=== PATIENT | male | born 1960 | race Caucasian/White ===

== ENCOUNTER → 2018-09-20 14:39 | Outpatient (CLI) | payer OTHER, SELFPAY ==
[2018-09-20 15:09] LABS: Cholesterol 219 mg/dL (140-199); HDL Cholesterol 56 mg/dL (40-60); LDL Cholesterol Calculated 125 mg/dL (<100); Triglycerides 191 mg/dL (35-150)
[2018-09-20 15:26] LABS: Vitamin D 25 Hydroxy (D3) 40.9 ng/mL (30.0-100.0)
[2018-09-20 15:40] LABS: Prostate Specific Antigen Scrn 0.429 ng/mL (0.1-4.0)
== END ==
PROVIDERS: PCP Student in an Organized Health Care Education/Training Program; Visit Provider Student in an Organized Health Care Education/Training Program
DX: E55.9 Vitamin D deficiency, unspecified (principal); E78.5 Hyperlipidemia, unspecified; Z12.5 Encounter for screening for malignant neoplasm of prostate; Z71.1 Person with feared health complaint in whom no diagnosis is made
CPT/HCPCS: 36415; 80061; 82306; 86787; G0103

== ENCOUNTER → 2019-10-18 09:45 | Outpatient (CLI) | payer OTHER, SELFPAY ==
[2019-10-19 01:55] LABS: COVID19 Sendout Not Detected (Not Detect)
== END ==
PROVIDERS: PCP Student in an Organized Health Care Education/Training Program; Visit Provider Physician Assistant
DX: R51 Headache (principal)
CPT/HCPCS: 87635

== ENCOUNTER 2019-10-19 14:36 | Inpatient (IN) | payer OTHER, SELFPAY ==
[2019-10-19] VITALS (21 sets, daily range): BP systolic 85–139; BP diastolic 38–74; PULSE 73–103; RESP 14–24; TEMP 36.7–37.8; O2SAT 97–100; BMI 26.6
--- NOTE | 2019-10-19 14:46 | DI.RAD.S_ITS ---
PROCEDURE: XR CHEST 1V INDICATIONS: fever/short of breath TECHNIQUE: One view of the chest was acquired. COMPARISON: [facility], , CHEST 2 VIEW, 03/27/2012, 10:42. [facility], , XR CHEST 2V, 09/14/2017, 8:11. FINDINGS: Surgical changes and devices: Sternotomy wires and an aortic valve can be seen. Lungs and pleura: An incomplete inspiratory result is noted, causing a crowded appearance to the lung markings. No focal infiltrates are seen. No pneumothorax or significant pleural effusions are seen. Mediastinum: Mediastinal contours appear normal. Heart size is normal. Bones and chest wall: No suspicious bony lesions. Age-appropriate bony degenerative changes are seen. Overlying soft tissues appear unremarkable. IMPRESSION: Limited portable chest examination, without a significant cardiopulmonary abnormality identified. Postoperative and degenerative changes are seen. Dictated by: Al Winston M.D. on 10/19/2019 at 15:01 Approved by: Al Winston M.D. on 10/19/2019 at 15:01
[2019-10-19] MEDS: SODIUM CHLORIDE 0.9% 1,000 ML 1000 ML IV ×2 (15:11→18:00)
[2019-10-19] MEDS: ONDANSETRON 4 MG/2 ML INJ IV (15:11)
--- NOTE | 2019-10-19 15:12 | PC.NURSE ---
reports fever starting night, has been constipated tried miralax and stool softener. Dry heaves one time no vomiting. Rigors and chills. Reports abd bloating and distention. Tender to palpation across upper abd
[2019-10-19 15:14] LABS: Add Manual Diff / Slide Review NO; Basophils Absolute Auto 100 /uL (0-100); Basophils Percent Auto 0.6 % (0-2); Eosinophils Absolute Auto 0 /uL (0-450); Eosinophils Percent Auto 0.1 % (2-4); Hematocrit 36.4 % (41-53); Hemoglobin 12.7 g/dL (13.5-17.5); Lymphocytes Absolute Auto 500 /uL (1100-4500); Lymphocytes Percent Auto 4.7 % (25-40); Mean Corpuscular HGB Conc 34.8 % (30-36); Mean Corpuscular Hemoglobin 29.8 PG (26-34); Mean Corpuscular Volume 85.8 fL (80-100); Monocytes Absolute Auto 600 /uL (0-900); Monocytes Percent Auto 5.9 % (3-14); Neutrophils Absolute Auto 9500 /uL (1500-7000); Neutrophils Percent Auto 88.7 % (50-75); Platelet Count 147 X10^3/uL (150-400); Red Blood Cell Count 4.24 X10^6/uL (4.5-5.9); Red Cell Distribution Width 13.4 % (11.6-14.8); White Blood Cell Count 10.7 X10^3/uL (4.5-11.0)
--- NOTE | 2019-10-19 15:21 | DI.CT.S_ITS ---
PROCEDURE: CT ABDOMEN PELVIS W CON INDICATIONS: abdominal pain with fever and sepsis TECHNIQUE: After the administration of intravenous contrast, 5 mm thick sections acquired from the diaphragm to the symphysis. 5 mm coronal and sagittal reformats were acquired. For radiation dose reduction, the following was used: automated exposure control, adjustment of mA and/or kV according to patient size. COMPARISON: [facility], CR, XR CHEST 1V, 10/19/2019, 15:03. [facility], CT, ABDOMEN/PELVIS WITH CONTRAST, 09/14/2016, 13:01. FINDINGS: Image quality: Excellent. ABDOMEN: Lung bases: Lung bases are clear. Heart size is normal. Sternotomy wires are partially seen. A small hiatal hernia is incidentally noted. Solid organs: Liver is normal in size and enhancement. Diffuse fatty liver infiltration is noted. Gallbladder wall does not appear thickened. Biliary system is non dilated. Pancreas enhances normally. Spleen is normal in size and enhancement. No adrenal nodules. Kidneys demonstrate normal size and enhancement, without hydronephrosis. Peritoneum and bowel: Bowel loops demonstrate normal wall thickness and caliber. No free fluid or air. There is minimal sigmoid diverticulosis. Findings active diverticulitis are seen. Nodes and vessels: No retroperitoneal or mesenteric adenopathy by size criteria. Aorta and inferior vena cava are normal in size. Atherosclerotic calcification is noted. Miscellaneous: A mild periumbilical hernia is seen, containing fat. PELVIS: Genitourinary: Bladder wall thickness is normal. Miscellaneous: No enlarged inguinal or pelvic lymph nodes are seen. There is a fat-containing right inguinal hernia seen. Bones: No suspicious bony lesions. No vertebral body compression fractures. IMPRESSION: No imaging explanation is found for this patient's presenting symptoms. Incidental note is made of: Sternotomy Small hiatal hernia Fatty liver infiltration Fat-containing periumbilical hernia Minimal sigmoid diverticulosis, without diverticulitis Fat-containing right inguinal hernia Dictated by: Al Winston M.D. on 10/19/2019 at 15:11 Approved by: Al Winston M.D. on 10/19/2019 at 15:14
--- NOTE | 2019-10-19 15:24 | ED.FEVER ---
HPI - Fever General Chief Complaint: Fever Stated Complaint: fever up to 103, shaking, SOB Time Seen by Provider: 10/19/19 14:58 Source: patient Mode of arrival: Ambulatory History of Present Illness HPI Narrative: CC: Fever with shaking rigors HPI: The patient is a 58-year-old male who states that approximately 3 years ago he had a an aortic valve replaced with a bioprosthetic valve. He is on no anticoagulant other than aspirin. He presents today to the emergency department with shaking rigors and chills. He has no previous history of endocarditis. He complains that he has been having lower abdominal pain and tenderness. He states that he has had no arm dysuria or urinary frequency or urgency. He has been constipated and has not had a bowel movement. He states that he developed abdominal bloating on Sunday and a few days prior to that which he just kind of ignored. He has had no surgery on his belly including no appendectomy or cholecystectomy. He denies a history of pancreatitis as well as diverticulitis Crohn's disease or ulcerative colitis and irritable bowel syndrome. He has had no pyelonephritis kidney stones. He denies a history of diabetes mellitus hypertension stroke myocardial infarction. He has had fever for 3 days. He has had sweats with the shaking rigors. He has had tachypnea with shortness of breath associated with the rigors. He quit smoking cigarettes 22 years ago does not chew tobacco drinks alcohol 2 glasses of wine per night and does not smoke marijuana or marijuana products. Related Data Previous Rx's Medication Instructions Recorded aspirin 81 mg PO QDAY #30 tab 02/05/17 ezetimibe 10 mg tablet 10 mg PO DAILY #90 tab 09/24/19 Allergies Allergy/AdvReac Type Severity Reaction Status Date / Time sulfadiazine Allergy Severe Anaphylaxis Verified 10/19/19 17:15 oxycodone AdvReac Intermediate Nausea Verified 10/19/19 17:15 Review of Systems Review of Systems Narrative: REVIEW OF SYSTEMS: CONSTITUTIONAL: He has had fever for 3 days associated with shaking rigors and intermittent sweats. NEUROLOGICAL: He complains of a significant headache without nuchal rigidity. His had no numbness tingling paresthesias anesthesia is or paresis. He has had no focal weakness EENT: He denies any sore throat or trouble swallowing as well as any sinus congestion. CARDIO-PULMONARY: He has had tachypnea but no significant shortness of breath chest pain or cough. GASTROINTESTINAL: He has had ab abdominal pain in the right lower quadrant and upper quadrant with constipation, nausea but no vomiting or diarrhea. GENITAL URINARY: He has had no urinary frequency or urgency. MUSCULOSKELETAL/ RHEUMATOLOGICAL: Denies any significant back pain DERMATOLOGICAL: No skin rash hives or itching no bruising. Patient History Medical History Aortic stenosis (Chronic) Cardiac arrhythmia (Chronic) Depression (Chronic) Herpes (Chronic ~1996) Hyperlipidemia (Chronic) Sweet's syndrome (Chronic) Surgical History History of aortic valve replacement History of cardiac cath (Resolved ~2016) Family History Mother Cancer Grandfather Heart disease Grandmother Cancer Grandmother Cancer Social History household members: spouse Smoking Status: Former smoker Smoking Status: Former smoker Exam Narrative Exam Narrative: PHYSICAL EXAM: CONSTITUTIONAL: Awake, Alert, Oriented, Coherent, Cooperative in acute distress with shaking rigors. He appears pedal and sallow and may be icteric.. HEAD: AT/NC EENT: PERRL, FROM of eyes, no discharge, no nystagmus NOSE:No epistaxis or nasal drainage MOUTH:Oral mucosa is moist and pink, posterior pharynx is without erythema or exudate. NECK: Supple, no obvious JVD, Trachea is midline without stridor, no palpable LN. THORAX: No deformity, retractions, chest wall tenderness. LUNGS: Clear, symmetrical breath sounds without respiratory distress. The patient is obviously very tachypneic HEART: Tachycardic with a regular rhythm no appreciable murmur at this time ABDOMEN: Soft, tender in the right upper quadrant and right lower quadrant with mild guarding. No rebound. LYMPHATIC: no palpable lymph nodes or spleen. EXTREMITIES: No edema, deformity, tenderness or cyanosis. SKIN: No rash, bruising, petechiae or purpura. NEURO: Awake, alert, oriented, conversive, cranial nerves II-XII are symmetrical , moves all 4 extremities and is ambulatory. MENTAL HEALTH: Very anxious and uncomfortable. Initial Vital Signs Initial Vital Signs: Vital Signs Temperature 100.0 F H 10/19/19 14:44 Pulse Rate 103 H 10/19/19 14:44 Respiratory Rate 24 10/19/19 14:44 Blood Pressure 139/74 10/19/19 14:44 Pulse Oximetry 100 10/19/19 14:44 Course Course Course Narrative: 1627: The patient's VBG use revealed that his pH is 7.649, pCO2 of 17.8 bicarb is 19.6 total CO2 is 20 oxygen saturation 96%. Sodium is 130 potassium is 3.5 hematocrit 31% hemoglobin 10.5. The patient has a marked respiratory alkalosis. 1634: The CT scan of the patient's abdomen reveals no imaging explanation is found for the patient's presenting symptoms. Incidental note is made of a sternotomy small hiatal hernia fatty liver infiltration fat containing periumbilical hernia minimal sigmoid diverticulosis without diverticulitis fat containing right inguinal hernia. An ultrasound of the patient's right upper quadrant and gallbladder will be obtained. The patient chest x-ray revealed no acute cardiopulmonary pathology. The patient appears to have sepsis of unknown etiology. 1645: Discussed the patient with Dr. De La Cruz the hospitalist on-call. The patient's CT scan is negative as well as the chest x-ray. Because his liver function tests are abnormal we will obtain an ultrasound of the gallbladder to make sure there is no up cold cholecystitis or gallstones on ultrasound. This did not show up on CT scan. We are still waiting for the patient's urine. The other per remote possibility of sepsis of unknown etiology secondary questionably to endocarditis. The patient will be admitted to the hospital Dr. De La Cruz has agreed to accept the patient however we are waiting for the other 2 studies to be performed. He has not yet provided us with a urine sample. 1800: The patient has abnormal liver functions. Ultrasound of his gallbladder revealed no gallstones and was within normal limits. The patient appears to have sepsis of unknown etiology. The patient's urinalysis is negative for an infection. He may end up having sepsis of unknown etiology or an endocarditis since he has had in aortic valve replaced 3 years ago. The patient is being administered 1/3 L of fluid because his blood pressure is slowly declining however he is no longer tachycardic with a heart rate of 80. The patient is awake alert and oriented. He was administered Zosyn and vancomycin. He will be admitted to the intensive care unit. Orders Ordered: Discontinued Medications Acetaminophen (Tylenol) 975 mg PO NOW ONE Stop: 10/19/19 15:35 Last Admin: 10/19/19 15:39 Dose: 975 mg Documented by: MITCHELL Acetaminophen (Tylenol) 650 mg PO Q6HR PRN PRN Reason: Fever/Mild Pain (1-3) Last Admin: 10/22/19 09:08 Dose: 650 mg Documented by: JUAN J Admin: 10/20/19 02:39 Dose: 650 mg Documented by: ADAM Aspirin (Aspirin Ec) 81 mg PO DAILY [facility] Last Admin: 10/22/19 09:08 Dose: 81 mg Documented by: JUAN J Admin: 10/21/19 07:59 Dose: 81 mg Documented by: Admin: 10/20/19 08:39 Dose: 81 mg Documented by: MONICA Diphenhydramine HCl (Benadryl) 12.5 mg IV NOW ONE Stop: 10/19/19 15:19 Last Admin: 10/19/19 16:25 Dose: Not Given Documented by: MITCHELL Diphenhydramine HCl (Benadryl) 25 mg PO BEDTIME PRN PRN Reason: Insomnia Ezetimibe (Zetia) 10 mg PO DAILY [facility] Last Admin: 10/20/19 08:40 Dose: 10 mg Documented by: MONICA Enoxaparin Sodium (Lovenox) 40 mg SUBCUT DAILY [facility] Last Admin: 10/22/19 09:08 Dose: 40 mg Documented by: JUAN J Admin: 10/21/19 07:59 Dose: 40 mg Documented by: Admin: 10/20/19 08:39 Dose: 40 mg Documented by: MONICA Sodium Chloride (Normal Saline 0.9%) 1,000 mls @ 1,000 mls/hr IV BOLUS ONE Stop: 10/19/19 15:50 Last Infusion: 10/19/19 17:50 Dose: 0 mls/hr Documented by: Admin: 10/19/19 15:11 Dose: 1,000 mls/hr Documented by: MITCHELL Vancomycin HCl (Vancomycin) 1,000 mg in 200 mls @ 200 mls/hr IV NOW ONE Stop: 10/19/19 16:18 Last Infusion: 10/19/19 18:25 Dose: 0 mls/hr Documented by: Infusion: 10/19/19 18:18 Dose: 200 mls/hr Documented by: Admin: 10/19/19 17:20 Dose: 200 mls/hr Documented by: MITCHELL Piperacillin/Tazobactam/Dextrose (Zosyn) 4.5 gm in 100 mls @ 200 mls/hr IV NOW ONE Stop: 10/19/19 15:48 Last Infusion: 10/19/19 16:42 Dose: 0 mls/hr Documented by: Admin: 10/19/19 15:45 Dose: 200 mls/hr Documented by: MITCHELL Sodium Chloride (Normal Saline 0.9%) 1,000 mls @ 1,000 mls/hr IV BOLUS ONE Stop: 10/19/19 18:54 Last Infusion: 10/19/19 19:01 Dose: 0 mls/hr Documented by: Admin: 10/19/19 18:00 Dose: 1,000 mls/hr Documented by: MITCHELL Sodium Chloride (Normal Saline 0.9%) 1,000 mls @ 100 mls/hr IV CONT LOY Last Admin: 10/21/19 02:56 Dose: 100 mls/hr Documented by: Infusion: 10/20/19 18:40 Dose: 100 mls/hr Documented by: Admin: 10/20/19 08:40 Dose: 100 mls/hr Documented by: Infusion: 10/20/19 05:51 Dose: 100 mls/hr Documented by: Admin: 10/19/19 19:51 Dose: 100 mls/hr Documented by: IDALMIS Piperacillin/Tazobactam/Dextrose (Zosyn) 3.375 gm in 50 mls @ 100 mls/hr IV Q6H LOY Last Infusion: 10/22/19 14:00 Dose: 0 mls/hr Documented by: JUAN J Admin: 10/22/19 12:42 Dose: 100 mls/hr Documented by: Infusion: 10/22/19 07:39 Dose: 0 mls/hr Documented by: Admin: 10/22/19 06:30 Dose: 100 mls/hr Documented by: Infusion: 10/22/19 00:15 Dose: 0 mls/hr Documented by: Admin: 10/21/19 23:45 Dose: 100 mls/hr Documented by: Infusion: 10/21/19 18:20 Dose: 0 mls/hr Documented by: Admin: 10/21/19 17:50 Dose: 100 mls/hr Documented by: Infusion: 10/21/19 14:58 Dose: 0 mls/hr Documented by: Admin: 10/21/19 12:48 Dose: 100 mls/hr Documented by: Infusion: 10/21/19 07:08 Dose: 0 mls/hr Documented by: Admin: 10/21/19 05:57 Dose: 100 mls/hr Documented by: Infusion: 10/21/19 01:30 Dose: 0 mls/hr Documented by: Admin: 10/21/19 00:22 Dose: 100 mls/hr Documented by: Infusion: 10/20/19 20:17 Dose: 0 mls/hr Documented by: Admin: 10/20/19 19:47 Dose: 100 mls/hr Documented by: Infusion: 10/20/19 14:06 Dose: 100 mls/hr Documented by: Admin: 10/20/19 13:36 Dose: 100 mls/hr Documented by: Infusion: 10/20/19 07:33 Dose: 0 mls/hr Documented by: Admin: 10/20/19 06:04 Dose: 100 mls/hr Documented by: Infusion: 10/20/19 01:15 Dose: 0 mls/hr Documented by: Admin: 10/20/19 00:45 Dose: 100 mls/hr Documented by: ADAM Vancomycin HCl (Vancomycin) 1,000 mg in 200 mls @ 100 mls/hr IV Q8H [facility] Last Admin: 10/19/19 21:29 Dose: Not Given Documented by: PHAM Vancomycin HCl (Vancomycin) 1,000 mg in 200 mls @ 100 mls/hr IV Q8H [facility] Last Infusion: 10/22/19 12:37 Dose: 0 mls/hr Documented by: Admin: 10/22/19 10:25 Dose: 100 mls/hr Documented by: Infusion: 10/22/19 07:39 Dose: 0 mls/hr Documented by: Admin: 10/22/19 01:40 Dose: 100 mls/hr Documented by: Infusion: 10/21/19 21:09 Dose: 0 mls/hr Documented by: Admin: 10/21/19 18:51 Dose: 100 mls/hr Documented by: Infusion: 10/21/19 12:49 Dose: 0 mls/hr Documented by: Admin: 10/21/19 10:27 Dose: 100 mls/hr Documented by: Infusion: 10/21/19 05:57 Dose: 0 mls/hr Documented by: Admin: 10/21/19 02:56 Dose: 100 mls/hr Documented by: Infusion: 10/20/19 22:40 Dose: 0 mls/hr Documented by: [email or web address] Admin: 10/20/19 19:47 Dose: 100 mls/hr Documented by: Infusion: 10/20/19 13:21 Dose: 0 mls/hr Documented by: Admin: 10/20/19 11:18 Dose: 100 mls/hr Documented by: Infusion: 10/20/19 07:33 Dose: 0 mls/hr Documented by: Admin: 10/20/19 02:31 Dose: 100 mls/hr Documented by: ADAM Lorazepam (Ativan) 1 mg IV NOW ONE Stop: 10/19/19 16:31 Last Admin: 10/19/19 17:25 Dose: 1 mg Documented by: CY Magnesium Hydroxide (Milk Of Magnesia) 30 ml PO DAILY PRN PRN Reason: Constipation Metoclopramide HCl (Reglan) 10 mg IV NOW ONE Stop: 10/19/19 15:19 Last Admin: 10/19/19 16:25 Dose: Not Given Documented by: MITCHELL Morphine Sulfate (Morphine) 4 mg IV NOW ONE Stop: 10/19/19 15:22 Last Admin: 10/19/19 15:41 Dose: 4 mg Documented by: MITCHELL Morphine Sulfate (Morphine) 2 mg IV NOW ONE Stop: 10/21/19 07:50 Last Admin: 10/21/19 07:58 Dose: 2 mg Documented by: MONICA Morphine Sulfate (Morphine) 2 mg IV Q4HR PRN PRN Reason: Pain, Moderate (4-6) Naloxone HCl (Narcan) 0.2 mg IV Q2MIN PRN PRN Reason: Opiate Reversal Nitroglycerin (Nitrostat) 0.3 mg SL [id number] [id number] Last Admin: 10/21/19 07:34 Dose: 0.3 mg Documented by: MONICA Ondansetron HCl (Zofran) 4 mg IV NOW ONE Stop: 10/19/19 15:04 Last Admin: 10/19/19 15:11 Dose: 4 mg Documented by: MITCHELL Ondansetron HCl (Zofran) 4 mg IV Q8HR PRN PRN Reason: Nausea And Vomiting Potassium Chloride (Klor-Con M20) 40 meq PO NOW ONE Stop: 10/22/19 13:46 Last Admin: 10/22/19 13:59 Dose: 40 meq Documented by: JUAN J Vancomycin HCl (Vancomycin Trough) 1 request [facility] 1800 ONE Stop: 10/20/19 18:01 Last Admin: 10/20/19 19:46 Dose: 1 request Documented by: BETO Vancomycin HCl (Vancomycin Trough) 1 request [facility] 1800 ONE Stop: 10/22/19 18:01 Vital Signs Vital signs: Vital Signs - 8 hr 10/19/19 14:44 10/19/19 15:10 10/19/19 15:30 Temperature 100.0 F H Pulse Rate 103 H 100 H 98 H Respiratory Rate 24 24 16 Blood Pressure 139/74 Blood Pressure [Left Arm] 121/38 L 121/61 Pulse Oximetry 100 99 97 10/19/19 16:00 10/19/19 16:15 10/19/19 16:30 Temperature Pulse Rate 91 H 92 H 90 Respiratory Rate 18 16 17 Blood Pressure Blood Pressure [Left Arm] 105/59 L 95/52 L 91/53 L Pulse Oximetry 97 98 99 10/19/19 16:45 10/19/19 17:00 10/19/19 17:15 Temperature Pulse Rate 88 86 80 Respiratory Rate 16 14 16 Blood Pressure Blood Pressure [Left Arm] 99/58 L 93/50 L 93/50 L Pulse Oximetry 97 98 MDM - Fever Lab Data Result diagrams: 10/22/19 06:09 10/22/19 06:09 Labs: Lab Results 10/19/19 10/19/19 10/19/19 Range/Units 15:00 15:00 15:00 WBC 10.7 (4.5-11.0) X10^3/uL RBC 4.24 L (4.5-5.9) X10^6/uL Hgb 12.7 L (13.5-17.5) g/dL Hct 36.4 L (41-53) % MCV 85.8 (80-100) fL MCH 29.8 (26-34) PG MCHC 34.8 (30-36) % RDW 13.4 (11.6-14.8) % Plt Count 147 L (150-400) X10^3/uL Neut % (Auto) 88.7 H (50-75) % Lymph % (Auto) 4.7 L (25-40) % [place] % (Auto) 5.9 (3-14) % Eos % (Auto) 0.1 L (2-4) % Baso % (Auto) 0.6 (0-2) % Neut # (Auto) 9500 H (8296-9134) /uL Lymph # (Auto) 500 L (3690-8320) /uL [place] # (Auto) 600 (0-900) /uL Eos # (Auto) 0 (0-450) /uL Baso # (Auto) 100 (0-100) /uL ESR (0-15) MM/HR VBG pH (7.33-7.43) VBG pCO2 (45-50) mmHg VBG pO2 (35-45) mmHg VBG HCO3 (23-28) mmol/L VBG Total CO2 (24-29) mmol/L VBG O2 Saturation (70-75) % VBG Base Excess (0-4) mmol/L Sodium 133 L (137-145) mmol/L Potassium 3.8 (3.4-5.1) mmol/L Chloride 98 (98-107) mmol/L Carbon Dioxide 25 (22-32) mmol/L BUN 14 (9-20) mg/dL Creatinine 0.91 (0.66-1.25) mg/dL Estimated GFR > 60.0 (>60) mL/min BUN/Creatinine Ratio 15.4 (6-22) Glucose 98 (80-110) mg/dL Lactate (0.7-2.1) mmol/L Calcium 8.9 (8.4-10.2) mg/dL Ferritin (18-464) ng/mL Total Bilirubin 0.8 (0.2-1.3) mg/dL AST 115 H (17-59) IU/L ALT 125 H (<50) IU/L Alkaline Phosphatase 78 (38-126) U/L C-Reactive Protein (<1.0) mg/dL Total Protein 7.1 (6.3-8.2) g/dL Albumin 4.3 (3.5-5.0) g/dL Globulin 2.8 (1.7-4.1) g/dL Albumin/Globulin Ratio 1.5 (1.0-2.8) Procalcitonin 1.09 H (<0.5) ng/mL Urine Color Urine Appearance Urine pH (4.5-8.0) Ur Specific Preston (1.000-1.035) Urine Protein (Negative) Urine Glucose (UA) (Negative) g/dL Urine Ketones (NEGATIVE) Urine Occult Blood (Negative) Urine Nitrate (Negative) Urine Bilirubin (NEGATIVE) Urine Urobilinogen (0.2) E.U./dL Ur Leukocyte Esterase (NEGATIVE) Urine RBC (0-5/HPF) Urine WBC (0-5/HPF) Urine Bacteria (None) Ur Culture Indicated? A. baumannii (PCR) (Not Detect) Yola albicans (PCR) (Not Detect) C. glabrata (PCR) (Not Detect) C. krusei (PCR) (Not Detect) C. parapsilosis (PCR) (Not Detect) C. tropicalis (PCR) (Not Detect) COVID-19 PCR (Negative) Enterobacteriac sp PCR (Not Detect) E. cloacae complex PCR (Not Detect) Enterococcus sp PCR (Not Detect) E. coli (PCR) (Not Detect) H. influenzae (PCR) (Not Detect) Klebsiella oxytoca PCR (Not Detect) Klebsiella pneumoniae (Not Detect) List. monocytogenes PCR (Not Detect) N. meningitidis (PCR) (Not Detect) Proteus species (PCR) (Not Detect) Serratia marcescens PCR (Not Detect) Staphylococcus sp PCR (Not Detect) Staph aureus (PCR) (Not Detect) mecA-Methicil Res Gene Streptococcus sp PCR (Not Detect) Group A Strep (PCR) (Not Detect) Strep agalactiae (PCR) (Not Detect) Strep pneumoniae (PCR) (Not Detect) P. aeruginosa (PCR) (Not Detect) Mariajose/B-Vanco Res Genes (Not Detect) KPC-Carbap Res Gene PCR 10/19/19 10/19/19 10/19/19 Range/Units 15:00 15:00 15:00 WBC (4.5-11.0) X10^3/uL RBC (4.5-5.9) X10^6/uL Hgb (13.5-17.5) g/dL Hct (41-53) % MCV (80-100) fL MCH (26-34) PG MCHC (30-36) % RDW (11.6-14.8) % Plt Count (150-400) X10^3/uL Neut % (Auto) (50-75) % Lymph % (Auto) (25-40) % [place] % (Auto) (3-14) % Eos % (Auto) (2-4) % Baso % (Auto) (0-2) % Neut # (Auto) (5096-2953) /uL Lymph # (Auto) (5068-2550) /uL [place] # (Auto) (0-900) /uL Eos # (Auto) (0-450) /uL Baso # (Auto) (0-100) /uL ESR 34 H (0-15) MM/HR VBG pH (7.33-7.43) VBG pCO2 (45-50) mmHg VBG pO2 (35-45) mmHg VBG HCO3 (23-28) mmol/L VBG Total CO2 (24-29) mmol/L VBG O2 Saturation (70-75) % VBG Base Excess (0-4) mmol/L Sodium (137-145) mmol/L Potassium (3.4-5.1) mmol/L Chloride (98-107) mmol/L Carbon Dioxide (22-32) mmol/L BUN (9-20) mg/dL Creatinine (0.66-1.25) mg/dL Estimated GFR (>60) mL/min BUN/Creatinine Ratio (6-22) Glucose (80-110) mg/dL Lactate 3.1 H (0.7-2.1) mmol/L Calcium (8.4-10.2) mg/dL Ferritin (18-464) ng/mL Total Bilirubin (0.2-1.3) mg/dL AST (17-59) IU/L ALT (<50) IU/L Alkaline Phosphatase (38-126) U/L C-Reactive Protein 8.4 H (<1.0) mg/dL Total Protein (6.3-8.2) g/dL Albumin (3.5-5.0) g/dL Globulin (1.7-4.1) g/dL Albumin/Globulin Ratio (1.0-2.8) Procalcitonin (<0.5) ng/mL Urine Color Urine Appearance Urine pH (4.5-8.0) Ur Specific Preston (1.000-1.035) Urine Protein (Negative) Urine Glucose (UA) (Negative) g/dL Urine Ketones (NEGATIVE) Urine Occult Blood (Negative) Urine Nitrate (Negative) Urine Bilirubin (NEGATIVE) Urine Urobilinogen (0.2) E.U./dL Ur Leukocyte Esterase (NEGATIVE) Urine RBC (0-5/HPF) Urine WBC (0-5/HPF) Urine Bacteria (None) Ur Culture Indicated? A. baumannii (PCR) (Not Detect) Yola albicans (PCR) (Not Detect) C. glabrata (PCR) (Not Detect) C. krusei (PCR) (Not Detect) C. parapsilosis (PCR) (Not Detect) C. tropicalis (PCR) (Not Detect) COVID-19 PCR (Negative) Enterobacteriac sp PCR (Not Detect) E. cloacae complex PCR (Not Detect) Enterococcus sp PCR (Not Detect) E. coli (PCR) (Not Detect) H. influenzae (PCR) (Not Detect) Klebsiella oxytoca PCR (Not Detect) Klebsiella pneumoniae (Not Detect) List. monocytogenes PCR (Not Detect) N. meningitidis (PCR) (Not Detect) Proteus species (PCR) (Not Detect) Serratia marcescens PCR (Not Detect) Staphylococcus sp PCR (Not Detect) Staph aureus (PCR) (Not Detect) mecA-Methicil Res Gene Streptococcus sp PCR (Not Detect) Group A Strep (PCR) (Not Detect) Strep agalactiae (PCR) (Not Detect) Strep pneumoniae (PCR) (Not Detect) P. aeruginosa (PCR) (Not Detect) Mariajose/B-Vanco Res Genes (Not Detect) KPC-Carbap Res Gene PCR 10/19/19 10/19/19 10/19/19 Range/Units 15:00 15:00 16:05 WBC (4.5-11.0) X10^3/uL RBC (4.5-5.9) X10^6/uL Hgb (13.5-17.5) g/dL Hct (41-53) % MCV (80-100) fL MCH (26-34) PG MCHC (30-36) % RDW (11.6-14.8) % Plt Count (150-400) X10^3/uL Neut % (Auto) (50-75) % Lymph % (Auto) (25-40) % [place] % (Auto) (3-14) % Eos % (Auto) (2-4) % Baso % (Auto) (0-2) % Neut # (Auto) (5225-7949) /uL Lymph # (Auto) (1273-4417) /uL [place] # (Auto) (0-900) /uL Eos # (Auto) (0-450) /uL Baso # (Auto) (0-100) /uL ESR (0-15) MM/HR VBG pH 7.65 H (7.33-7.43) VBG pCO2 17.8 L (45-50) mmHg VBG pO2 62 H (35-45) mmHg VBG HCO3 20 L (23-28) mmol/L VBG Total CO2 20 L (24-29) mmol/L VBG O2 Saturation 96 H (70-75) % VBG Base Excess -1.0 L (0-4) mmol/L Sodium (137-145) mmol/L Potassium (3.4-5.1) mmol/L Chloride (98-107) mmol/L Carbon Dioxide (22-32) mmol/L BUN (9-20) mg/dL Creatinine (0.66-1.25) mg/dL Estimated GFR (>60) mL/min BUN/Creatinine Ratio (6-22) Glucose (80-110) mg/dL Lactate (0.7-2.1) mmol/L Calcium (8.4-10.2) mg/dL Ferritin 337 (18-464) ng/mL Total Bilirubin (0.2-1.3) mg/dL AST (17-59) IU/L ALT (<50) IU/L Alkaline Phosphatase (38-126) U/L C-Reactive Protein (<1.0) mg/dL Total Protein (6.3-8.2) g/dL Albumin (3.5-5.0) g/dL Globulin (1.7-4.1) g/dL Albumin/Globulin Ratio (1.0-2.8) Procalcitonin (<0.5) ng/mL Urine Color Urine Appearance Urine pH (4.5-8.0) Ur Specific Preston (1.000-1.035) Urine Protein (Negative) Urine Glucose (UA) (Negative) g/dL Urine Ketones (NEGATIVE) Urine Occult Blood (Negative) Urine Nitrate (Negative) Urine Bilirubin (NEGATIVE) Urine Urobilinogen (0.2) E.U./dL Ur Leukocyte Esterase (NEGATIVE) Urine RBC (0-5/HPF) Urine WBC (0-5/HPF) Urine Bacteria (None) Ur Culture Indicated? A. baumannii (PCR) Not detected (Not Detect) Yola albicans (PCR) Not detected (Not Detect) C. glabrata (PCR) Not detected (Not Detect) C. krusei (PCR) Not detected (Not Detect) C. parapsilosis (PCR) Not detected (Not Detect) C. tropicalis (PCR) Not detected (Not Detect) COVID-19 PCR (Negative) Enterobacteriac sp PCR Not detected (Not Detect) E. cloacae complex PCR Not detected (Not Detect) Enterococcus sp PCR Detected H (Not Detect) E. coli (PCR) Not detected (Not Detect) H. influenzae (PCR) Not detected (Not Detect) Klebsiella oxytoca PCR Not detected (Not Detect) Klebsiella pneumoniae Not detected (Not Detect) List. monocytogenes PCR Not detected (Not Detect) N. meningitidis (PCR) Not detected (Not Detect) Proteus species (PCR) Not detected (Not Detect) Serratia marcescens PCR Not detected (Not Detect) Staphylococcus sp PCR Not detected (Not Detect) Staph aureus (PCR) Not detected (Not Detect) mecA-Methicil Res Gene Not Reportable Streptococcus sp PCR Not detected (Not Detect) Group A Strep (PCR) Not detected (Not Detect) Strep agalactiae (PCR) Not detected (Not Detect) Strep pneumoniae (PCR) Not detected (Not Detect) P. aeruginosa (PCR) Not detected (Not Detect) Mariajose/B-Vanco Res Genes Not detected (Not Detect) KPC-Carbap Res Gene PCR Not Reportable 10/19/19 10/19/19 Range/Units 16:36 17:18 WBC (4.5-11.0) X10^3/uL RBC (4.5-5.9) X10^6/uL Hgb (13.5-17.5) g/dL Hct (41-53) % MCV (80-100) fL MCH (26-34) PG MCHC (30-36) % RDW (11.6-14.8) % Plt Count (150-400) X10^3/uL Neut % (Auto) (50-75) % Lymph % (Auto) (25-40) % [place] % (Auto) (3-14) % Eos % (Auto) (2-4) % Baso % (Auto) (0-2) % Neut # (Auto) (5650-8589) /uL Lymph # (Auto) (0767-7417) /uL [place] # (Auto) (0-900) /uL Eos # (Auto) (0-450) /uL Baso # (Auto) (0-100) /uL ESR (0-15) MM/HR VBG pH (7.33-7.43) VBG pCO2 (45-50) mmHg VBG pO2 (35-45) mmHg VBG HCO3 (23-28) mmol/L VBG Total CO2 (24-29) mmol/L VBG O2 Saturation (70-75) % VBG Base Excess (0-4) mmol/L Sodium (137-145) mmol/L Potassium (3.4-5.1) mmol/L Chloride (98-107) mmol/L Carbon Dioxide (22-32) mmol/L BUN (9-20) mg/dL Creatinine (0.66-1.25) mg/dL Estimated GFR (>60) mL/min BUN/Creatinine Ratio (6-22) Glucose (80-110) mg/dL Lactate (0.7-2.1) mmol/L Calcium (8.4-10.2) mg/dL Ferritin (18-464) ng/mL Total Bilirubin (0.2-1.3) mg/dL AST (17-59) IU/L ALT (<50) IU/L Alkaline Phosphatase (38-126) U/L C-Reactive Protein (<1.0) mg/dL Total Protein (6.3-8.2) g/dL Albumin (3.5-5.0) g/dL Globulin (1.7-4.1) g/dL Albumin/Globulin Ratio (1.0-2.8) Procalcitonin (<0.5) ng/mL Urine Color Yellow Urine Appearance Clear Urine pH 8.5 H (4.5-8.0) Ur Specific [place] <=1.005 (1.000-1.035) Urine Protein Trace H (Negative) Urine Glucose (UA) Negative (Negative) g/dL Urine Ketones 2+ H (NEGATIVE) Urine Occult Blood Negative (Negative) Urine Nitrate Negative (Negative) Urine Bilirubin Negative (NEGATIVE) Urine Urobilinogen 0.2 (0.2) E.U./dL Ur Leukocyte Esterase Negative (NEGATIVE) Urine RBC 0-1/hpf (0-5/HPF) Urine WBC 0-1/hpf (0-5/HPF) Urine Bacteria None seen (None) Ur Culture Indicated? Cult not indicated A. baumannii (PCR) (Not Detect) Yola albicans (PCR) (Not Detect) C. glabrata (PCR) (Not Detect) C. krusei (PCR) (Not Detect) C. parapsilosis (PCR) (Not Detect) C. tropicalis (PCR) (Not Detect) COVID-19 PCR Negative (Negative) Enterobacteriac sp PCR (Not Detect) E. cloacae complex PCR (Not Detect) Enterococcus sp PCR (Not Detect) E. coli (PCR) (Not Detect) H. influenzae (PCR) (Not Detect) Klebsiella oxytoca PCR (Not Detect) Klebsiella pneumoniae (Not Detect) List. monocytogenes PCR (Not Detect) N. meningitidis (PCR) (Not Detect) Proteus species (PCR) (Not Detect) Serratia marcescens PCR (Not Detect) Staphylococcus sp PCR (Not Detect) Staph aureus (PCR) (Not Detect) mecA-Methicil Res Gene Streptococcus sp PCR (Not Detect) Group A Strep (PCR) (Not Detect) Strep agalactiae (PCR) (Not Detect) Strep pneumoniae (PCR) (Not Detect) P. aeruginosa (PCR) (Not Detect) Mariajose/B-Vanco Res Genes (Not Detect) KPC-Carbap Res Gene PCR ABG Data Attestation: I personally reviewed and interpreted this ABG as follows: ECG Data Attestation: I personally reviewed and interpreted this ECG as follows: Interpretation: The patient's ventricular rate is 102 and has a sinus tachycardia. MI interval is normal QRS is normal in duration QTC is 417 milliseconds axis is normal. There are no other acute diagnostic ST segment changes. The patient has T-wave inversions in V1 but no other acute changes to suggest ischemia or infarct. Discharge Plan Departure Patient Disposition: Admitted As Inpatient Clinical Impression: Acute respiratory alkalosis, Acidosis, lactic Fever Qualifiers: Fever type: unspecified Qualified Code(s): R50.9 - Fever, unspecified Sepsis Qualifiers: Sepsis type: sepsis due to unspecified organism Sepsis acute organ dysfunction status: unspecified Qualified Code(s): A41.9 - Sepsis, unspecified organism Discharge Date/Time: 10/19/19 18:36 Referrals: Sander Gatica MD [Primary Care Provider] - Admit Date/Time: 10/19/19 17:46 Admit Provider: Cesar De La Cruz
[2019-10-19 15:27] LABS: Alanine Aminotransferase 125 IU/L (<50); Albumin 4.3 g/dL (3.5-5.0); Albumin Globulin Ratio 1.5 (1.0-2.8); Alkaline Phosphatase 78 U/L (38-126); Aspartate Aminotransferase 115 IU/L (17-59); BUN Creatinine Ratio 15.4 (6-22); Bilirubin Total 0.8 mg/dL (0.2-1.3); Blood Urea Nitrogen 14 mg/dL (9-20); Calcium 8.9 mg/dL (8.4-10.2); Carbon Dioxide 25 mmol/L (22-32); Chloride 98 mmol/L (98-107); Estimated Glomerular Filt Rate > 60.0 mL/min (>60); Globulin 2.8 g/dL (1.7-4.1); Glucose 98 mg/dL (80-110); HEMOLYSIS 16 (0-50); Potassium 3.8 mmol/L (3.4-5.1); Sodium 133 mmol/L (137-145); Total Protein 7.1 g/dL (6.3-8.2)
[2019-10-19 15:28] LABS: Lactate (Lactic Acid) 3.1 mmol/L (0.7-2.1)
[2019-10-19] MEDS: ACETAMINOPHEN 325 MG TABLET 975 MG PO (15:39)
[2019-10-19 15:41] LABS: C-Reactive Protein Quant 8.4 mg/dL (<1.0)
[2019-10-19] MEDS: MORPHINE 4 MG/ML INJ IV (15:41)
[2019-10-19] MEDS: PIPERACILLIN-TAZO 4.5 GM/100 ML FROZ.PIGGY IV (15:45)
[2019-10-19 16:01] LABS: Procalcitonin 1.09 ng/mL (<0.5)
[2019-10-19 16:04] LABS: Erythrocyte Sedimentation Rate 34 MM/HR (0-15)
--- NOTE | 2019-10-19 16:35 | DI.US.S_ITS ---
PROCEDURE: US ABDOMEN LIMITED INDICATIONS: TENDER RUQ, SEPSIS, ?GALLSTONES TECHNIQUE: Real-time focused scanning was performed of the abdomen, with image documentation. COMPARISON: [facility], CR, XR CHEST 1V, 10/19/2019, 15:03. [facility], CT, CT ABDOMEN PELVIS W CON, 10/19/2019, 15:46. FINDINGS: The liver demonstrates normal size. The liver demonstrates generalized increased echogenicity. This decreases ultrasound sensitivity for detection of hepatic masses. No findings of gallstones or sludge are seen. The gallbladder wall is not thickened, measuring 3 mm or less. No specific pericholecystic fluid is seen. The sonographic Shaikh sign is negative. The common bile duct is dilated measuring 10 mm. The pancreas is not well-seen. IMPRESSION: Dilated common bile duct measuring up to 10 mm. No cause of obstruction can be seen. If clinically appropriate, an MRCP could be considered for further evaluation (assuming that there is no contraindication to MRI). Normal appearing gallbladder ultrasound. Note: Concordant preliminary findings given by the social professionals upon the completion of the examination to Dr. Anand at 5:45 PM on October 19, 2019. Dictated by: Al Winston M.D. on 10/19/2019 at 16:57 Approved by: Al Winston M.D. on 10/19/2019 at 16:59
[2019-10-19 16:36] LABS: HCO3 VBG 20 mmol/L (23-28); PCO2 VBG 17.8 mmHg (45-50); PO2 VBG 62 mmHg (35-45); Total CO2 VBG 20 mmol/L (24-29); pH VBG 7.65 (7.33-7.43)
[2019-10-19 16:37] LABS: Oxygen Saturation VBG 96 % (70-75)
[2019-10-19 16:39] LABS: Ferritin 337 ng/mL (18-464)
[2019-10-19 17:10] LABS: Reflexed Lactate in 2 Hours Y
[2019-10-19] MEDS: VANCOMYCIN 1,000 MG/200 ML PIGGYBACK 200 MG IV (17:20)
[2019-10-19 17:22] LABS: Bacteria Urine None Seen
[2019-10-19] MEDS: LORazepam 2 MG/ML INJ 1 MG IV (17:25)
[2019-10-19 17:26] LABS: Appearance Urine UA CLEAR; Bilirubin Urine UA NEGATIVE (NEGATIVE); Color Urine UA YELLOW; Glucose Urine UA NEGATIVE (Negative); Ketones Urine UA 2+ (NEGATIVE); Leukocyte Esterase Urine UA NEGATIVE (NEGATIVE); Nitrite Urine UA NEGATIVE (Negative); Occult Blood Urine UA NEGATIVE (Negative); Protein Urine UA TRACE (Negative); Specific Gravity Urine UA <=1.005 (1.000-1.035); Urobilinogen Urine UA 0.2 E.U./dL (0.2); pH Urine UA 8.5 (4.5-8.0)
[2019-10-19 17:31] LABS: COVID19 -Nasal RAPID Negative (Negative)
[2019-10-19 17:33] LABS: Culture Indicated Urine Cult Not Indicated; RBC Urine 0-1/HPF (0-5/HPF); WBC Urine 0-1/HPF (0-5/HPF)
--- NOTE | 2019-10-19 18:01 | P.HP_ITS ---
History of Present Illness History of Present Illness Date Patient Seen: 10/19/19 Time Patient Seen: 17:00 Chief complaint: fever up to 103, shaking, SOB Narrative: Patient is 58-year-old male with history tissue heart valve for aortic stenosis who presents to the emergency department with almost 2 day history of fever and rigors. He developed acute onset of rigors and high fevers around midnight Sunday. He states he has been shaking almost nonstop to point of fatigue and unable to fall asleep. His temperature has been as high as 103.8 at home. He has also noticed significant discomfort across his lower abdomen. He has felt a little bloated which she attributed to homemade chili a couple of days ago but had last bowel movement today. He denies any dyspnea, cough, nausea, vomiting, flank pain, urinary urgency or discomfort. He has some headache which he attributes to not sleeping and fevers. Initial vitals in the ED he was normotensive with blood pressure in the 120s over 70s. However his blood pressure has been trending down into the 80s/50s in spite of 2 L fluid resuscitation. He is mildly tachycardic with rate anywhere from 80 to around 100, temp 100.1?, respirations 16-24, O2 sat 98% room air. Chest x-ray without acute findings. He had abdomen and pelvic CT which showed fatty liver, fat containing umbilical hernia, right inguinal hernia without acute findings. Abdominal ultrasound indicated dilated CBD measuring up to 10 mm without gallstones or other obvious cause of obstruction and with normal appearing gallbladder. Labs: WBC 10.7, 88.7% neutrophils, hemoglobin 12.7, BUN 14, creatinine 0.9, lactate 3.1, AST 115, ALT 125, bili 0.8, and procalcitonin 1.09. Blood cultures were sent. Urine was obtained after IV antibiotics but microscopic does not indicate infection. He was started on Zosyn and vancomycin in the ED. Patient History Medical History Aortic stenosis (Chronic) Cardiac arrhythmia (Chronic) Depression (Chronic) Herpes (Chronic ~1996) Hyperlipidemia (Chronic) Sweet's syndrome (Chronic) Surgical History History of aortic valve replacement History of cardiac cath (Resolved ~2016) Family & Social History Family History Mother Cancer Grandfather Heart disease Grandmother Cancer Grandmother Cancer Tobacco & Substance use: Smoking Status Former smoker Meds Home Medications and Allergies Home Medications Medication Instructions Recorded Confirmed Type aspirin 81 mg PO QDAY #30 tab 02/05/17 08/22/18 Rx ezetimibe 10 mg tablet 10 mg PO DAILY #90 tab 09/24/19 Rx Allergies Allergy/AdvReac Type Severity Reaction Status Date / Time sulfadiazine Allergy Severe Anaphylaxis Verified 10/19/19 17:15 oxycodone AdvReac Intermediate Nausea Verified 10/19/19 17:15 Review of Systems Review of Systems ROS: Yes All systems reviewed with the patient and are negative except as oth erwise documented Exam Vital Signs (past 8 hours): - 10/19/19 14:44 10/19/19 15:10 10/19/19 15:30 Temperature 100.0 F H Pulse Rate 103 H 100 H 98 H Respiratory Rate 24 24 16 Blood Pressure 139/74 Blood Pressure [Left Arm] 121/38 L 121/61 Pulse Oximetry 100 99 97 10/19/19 16:00 10/19/19 16:15 10/19/19 16:30 Temperature Pulse Rate 91 H 92 H 90 Respiratory Rate 18 16 17 Blood Pressure Blood Pressure [Left Arm] 105/59 L 95/52 L 91/53 L Pulse Oximetry 97 98 99 10/19/19 16:45 10/19/19 17:00 10/19/19 17:15 Temperature Pulse Rate 88 86 80 Respiratory Rate 16 14 16 Blood Pressure Blood Pressure [Left Arm] 99/58 L 93/50 L 93/50 L Pulse Oximetry 97 98 Oxygen Delivery Method Room Air Narrative Exam Narrative: General: Well-developed well-nourished but ill-appearing male HEENT: Pupils equal and reactive, oropharynx unremarkable Neck: Supple without lymphadenopathy Lungs: Clear to auscultation Heart: Normal S1 and S2, regular rhythm, there is aortic systolic murmur Abdomen: Nondistended, soft, there is mild tenderness across lower abdomen which is not reproducible, no HSM, no abdominal mass Extremities: Warm, dry, no edema Neurological: Sensorium intact, no focal weakness Skin: No rash or petechiae Objective Labs Result Diagrams: 10/19/19 15:00 06/14/20 15:00 Labs: Laboratory Results - last 24 hr 10/19/19 10/19/19 10/19/19 15:00 15:00 15:00 WBC 10.7 RBC 4.24 L Hgb 12.7 L Hct 36.4 L MCV 85.8 MCH 29.8 MCHC 34.8 RDW 13.4 Plt Count 147 L Neut % (Auto) 88.7 H Lymph % (Auto) 4.7 L [place] % (Auto) 5.9 Eos % (Auto) 0.1 L Baso % (Auto) 0.6 Neut # (Auto) 9500 H Lymph # (Auto) 500 L [place] # (Auto) 600 Eos # (Auto) 0 Baso # (Auto) 100 ESR VBG pH VBG pCO2 VBG pO2 VBG HCO3 VBG Total CO2 VBG O2 Saturation VBG Base Excess Sodium 133 L Potassium 3.8 Chloride 98 Carbon Dioxide 25 BUN 14 Creatinine 0.91 Estimated GFR > 60.0 BUN/Creatinine Ratio 15.4 Glucose 98 Lactate Calcium 8.9 Ferritin Total Bilirubin 0.8 AST 115 H ALT 125 H Alkaline Phosphatase 78 C-Reactive Protein Total Protein 7.1 Albumin 4.3 Globulin 2.8 Albumin/Globulin Ratio 1.5 Procalcitonin 1.09 H Urine Color Urine Appearance Urine pH Ur Specific [place] Urine Protein Urine Glucose (UA) Urine Ketones Urine Occult Blood Urine Nitrate Urine Bilirubin Urine Urobilinogen Ur Leukocyte Esterase Urine RBC Urine WBC Urine Bacteria Ur Culture Indicated? COVID-19 PCR 10/19/19 10/19/19 10/19/19 15:00 15:00 15:00 WBC RBC Hgb Hct MCV MCH MCHC RDW Plt Count Neut % (Auto) Lymph % (Auto) [place] % (Auto) Eos % (Auto) Baso % (Auto) Neut # (Auto) Lymph # (Auto) [place] # (Auto) Eos # (Auto) Baso # (Auto) ESR 34 H VBG pH VBG pCO2 VBG pO2 VBG HCO3 VBG Total CO2 VBG O2 Saturation VBG Base Excess Sodium Potassium Chloride Carbon Dioxide BUN Creatinine Estimated GFR BUN/Creatinine Ratio Glucose Lactate 3.1 H Calcium Ferritin Total Bilirubin AST ALT Alkaline Phosphatase C-Reactive Protein 8.4 H Total Protein Albumin Globulin Albumin/Globulin Ratio Procalcitonin Urine Color Urine Appearance Urine pH Ur Specific [place] Urine Protein Urine Glucose (UA) Urine Ketones Urine Occult Blood Urine Nitrate Urine Bilirubin Urine Urobilinogen Ur Leukocyte Esterase Urine RBC Urine WBC Urine Bacteria Ur Culture Indicated? COVID-19 PCR 10/19/19 10/19/19 10/19/19 15:00 16:05 16:36 WBC RBC Hgb Hct MCV MCH MCHC RDW Plt Count Neut % (Auto) Lymph % (Auto) [place] % (Auto) Eos % (Auto) Baso % (Auto) Neut # (Auto) Lymph # (Auto) [place] # (Auto) Eos # (Auto) Baso # (Auto) ESR VBG pH 7.65 H VBG pCO2 17.8 L VBG pO2 62 H VBG HCO3 20 L VBG Total CO2 20 L VBG O2 Saturation 96 H VBG Base Excess -1.0 L Sodium Potassium Chloride Carbon Dioxide BUN Creatinine Estimated GFR BUN/Creatinine Ratio Glucose Lactate Calcium Ferritin 337 Total Bilirubin AST ALT Alkaline Phosphatase C-Reactive Protein Total Protein Albumin Globulin Albumin/Globulin Ratio Procalcitonin Urine Color Urine Appearance Urine pH Ur Specific [place] Urine Protein Urine Glucose (UA) Urine Ketones Urine Occult Blood Urine Nitrate Urine Bilirubin Urine Urobilinogen Ur Leukocyte Esterase Urine RBC Urine WBC Urine Bacteria Ur Culture Indicated? COVID-19 PCR Negative 10/19/19 17:18 WBC RBC Hgb Hct MCV MCH MCHC RDW Plt Count Neut % (Auto) Lymph % (Auto) [place] % (Auto) Eos % (Auto) Baso % (Auto) Neut # (Auto) Lymph # (Auto) [place] # (Auto) Eos # (Auto) Baso # (Auto) ESR VBG pH VBG pCO2 VBG pO2 VBG HCO3 VBG Total CO2 VBG O2 Saturation VBG Base Excess Sodium Potassium Chloride Carbon Dioxide BUN Creatinine Estimated GFR BUN/Creatinine Ratio Glucose Lactate Calcium Ferritin Total Bilirubin AST ALT Alkaline Phosphatase C-Reactive Protein Total Protein Albumin Globulin Albumin/Globulin Ratio Procalcitonin Urine Color Yellow Urine Appearance Clear Urine pH 8.5 H Ur Specific [place] <=1.005 Urine Protein Trace H Urine Glucose (UA) Negative Urine Ketones 2+ H Urine Occult Blood Negative Urine Nitrate Negative Urine Bilirubin Negative Urine Urobilinogen 0.2 Ur Leukocyte Esterase Negative Urine RBC 0-1/hpf Urine WBC 0-1/hpf Urine Bacteria None seen Ur Culture Indicated? Cult not indicated COVID-19 PCR Assessment & Plan Assessment & Plan narrative: This is a 58-year-old male with history of b ioprosthetic heart valve for aortic stenosis presenting now with fever, rigors x 2 days. 1. Sepsis, present on admission, active -patient presenting with fever, rigors, becoming hypotensive after fluid resuscitation without obvious source -lactate 3.1, procalcitonin 1.09, WBC 10.7 with left shift, he has mildly elevated LFTs -chest x-ray unremarkable for pneumonia, urine microscopic unremarkable for UTI, COVID negative -possible etiology includes infection of his bioprosthetic heart valve -continue vancomycin and Zosyn started in ED for broad-spectrum coverage -continue fluid resuscitation for sepsis -follow-up on blood cultures -patient will need to be managed in ICU due to blood pressure still low and dropping after 2 L normal saline -start pressors if map less than 65 after 3rd L NS (30cc/kg) -consider echo though blood cultures should be positive if SBE Code status: Full code DVT prophylaxis: Lovenox Surrogate decision maker: Spouse
[2019-10-19 18:16] LABS: Lactate 2HR (Lactic Acid Rflx) 0.8 mmol/L (0.7-2.1)
[2019-10-19] MEDS: SODIUM CHLORIDE 0.9% 1,000 ML 100 ML IV (19:51)
--- NOTE | 2019-10-19 22:12 | PC.NURSE ---
1800 Pt admitted from ED per stretcher. Ambulated from stretcher to bed without dizziness or weakness. Admission assessment completed and pt oriented to environment. Pt states pain in his l groin area is a /. IV NS bolus in progress. Alert and oriented x4, no C/O of difficulty breathing, able to lie flat. ambulating to BR to void after orthostatic vital completed. .
[2019-10-20] VITALS (12 sets, daily range): BP systolic 84–120; BP diastolic 55–73; PULSE 68–85; RESP 14–19; TEMP 36.6–37.4; O2SAT 95–99
[2019-10-20] MEDS: PIPERACILLIN-TAZO 3.375 GM/50 ML FROZ.PIGGY IV ×4 (00:45→19:47)
[2019-10-20] MEDS: VANCOMYCIN 1,000 MG/200 ML PIGGYBACK 100 MG IV ×3 (02:31→19:47)
[2019-10-20] MEDS: ACETAMINOPHEN 325 MG TABLET 650 MG PO (02:39)
--- NOTE | 2019-10-20 06:44 | PC.NURSE ---
Noc Note: Pt has been hypotensive this shift. Map 65-70. Mid to upper 90's on room air. Pt reports having a head ache and cramping abd, prn apap given with some relief. IV abx given as ordered. Pt taking po fluids and denies nausea. Pt has been afebrile.
[2019-10-20 08:33] LABS: Acinetobacter baumannii Not Detected (Not Detect); Candida albicans Not Detected (Not Detect); E. coli Not Detected (Not Detect); Enterobacter cloacae complex Not Detected (Not Detect); Enterobacteriaceae species Not Detected (Not Detect); Enterococcus species Detected (Not Detect); Listeria monocytogenes Not Detected (Not Detect); Neisseria meningitidis Not Detected (Not Detect); Proteus species Not Detected (Not Detect); Pseudomonas aeruginosa Not Detected (Not Detect); Serratia marcescens Not Detected (Not Detect); Staphylococcus species Not Detected (Not Detect); Streptococcus agalactiae (Gr B Not Detected (Not Detect); Streptococcus pneumonia Not Detected (Not Detect); Streptococcus pyogenes (Gr A) Not Detected (Not Detect); Streptococcus species Not Detected (Not Detect); Vancomycin-rest genes A/B Not Detected (Not Detect)
[2019-10-20 08:34] LABS: Candida glabrata Not Detected (Not Detect); Candida krusei Not Detected (Not Detect); Candida parapsilosis Not Detected (Not Detect); Candida tropicalis Not Detected (Not Detect); Haemophilus influenzae Not Detected (Not Detect)
[2019-10-20] MEDS: ASPIRIN EC 81 MG TABLET PO (08:39)
[2019-10-20] MEDS: ENOXAPARIN 40 MG/0.4 ML SYRINGE SUBCUT (08:39)
[2019-10-20] MEDS: SODIUM CHLORIDE 0.9% 1,000 ML 100 ML IV (08:40)
[2019-10-20] MEDS: EZETIMIBE 10 MG TABLET PO (08:40)
--- NOTE | 2019-10-20 09:35 | DI.MRI.S_ITS ---
PROCEDURE: MR ABDOMEN WO CON INDICATIONS: r/o biliary obstruction, has bioprosthetic heart valve TECHNIQUE: Coronal HASTE through the abdomen, axial 2-D FLASH in- and [id number], and breath-hold T2 FSE with fat saturation through the biliary system and pancreas. Oblique coronal and axial thin-slice HASTE, radial thick-slab HASTE centered on the extrahepatic bile ducts. COMPARISON: [facility], US, US ABDOMEN LIMITED, 10/19/2019, 17:33. [facility], CT, CT ABDOMEN PELVIS W CON, 10/19/2019, 15:46. FINDINGS: Image quality: There is mild motion artifact. Pancreas and biliary system: There is gallbladder wall thickening without gallstones or pericholecystic fluid. Small cystic changes within the gallbladder wall at the fundus are suggestive of adenomyomatosis. There is mild intrahepatic biliary ductal dilatation as well as mild dilatation of the extrahepatic duct, with the common bile duct measuring up to 1.1 cm. There is gradual tapering distally into the ampulla. No definite filling defects within the common bile duct to suggest choledocholithiasis. There is heterogeneous signal in the common duct on the axial STIR images which is likely artifactual. No discrete obstructing mass visualized. Pancreas is normal in morphology, without adjacent soft tissue edema. Pancreatic duct is normal in caliber. Other solid organs: Noncontrast evaluation of the liver demonstrates no discrete mass lesion. Spleen is normal in size. No adrenal nodules. Both kidneys are normal in size, without hydronephrosis. Nodes and vessels: No retroperitoneal or mesenteric adenopathy by size criteria. Aorta and inferior vena cava are normal in size. Bowel and peritoneum: Visualized bowel loops are normal in caliber. No free fluid. Lung bases: No basal pleural effusions. Heart size is normal. Bones and soft tissues: No ventral hernias. Bone marrow is of normal overall signal. IMPRESSION: 1. No cholelithiasis or definite choledocholithiasis. 2. Mild biliary ductal dilatation with tapering distally into the ampulla. No definite obstructive stone or discrete obstructing mass visualized in the absence of intravenous contrast. 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 Recommend correlation with laboratory values and if indicated further evaluation may be obtained with an ERCP. 3. Gallbladder wall thickening without cholelithiasis or definite pericholecystic fluid. The findings are nonspecific and the differential includes acalculus cholecystitis as well as liver failure or hypoalbuminemia among other etiologies. Dictated by: Mino Patton M.D. on 10/20/2019 at 13:59 Approved by: Mino Patton M.D. on 10/20/2019 at 14:06
--- NOTE | 2019-10-20 12:52 | P.PN_ITS ---
Subjective Subjective Date Patient Seen: 10/20/19 Interval history: Patient is a 58-year-old male who was admitted to the hospital for fever and rigors yesterday. He had some lower abdominal pain associated with this as well. Patient had a CT of the abdomen and pelvis. It showed common bile duct dilatation. Abdominal ultrasound was negative for acute cholecystitis. The patient continues to have continued lower abdominal pain. No nausea or vomiting. He continues to have low-grade fever. Blood cultures have turned positive for Enterococcus. Patient is awaiting cardiac echo. Exam Vital Signs (past 8 hours): - 10/20/19 06:00 10/20/19 08:00 10/20/19 10:50 Temperature 98.5 F Pulse Rate 68 73 76 Respiratory Rate 14 16 19 Blood Pressure 85/55 L 94/57 L 114/70 Pulse Oximetry 95 99 99 10/20/19 12:00 Temperature 98.6 F Pulse Rate 78 Respiratory Rate 18 Blood Pressure 106/64 Pulse Oximetry 98 Oxygen Delivery Method Room Air Oxygen Flow Rate 0 Narrative Exam Narrative: Pleasant gentleman resting comfortably in no obvious distress Lungs: Clear to auscultation Cardiac exam regular rate and rhythm normal S1-S2 with a 2/6 systolic ejection murmur Abdomen: Soft, mildly tender in the right upper quadrant, no palpable masses, no rebound tenderness, no board-like rigidity Extremities: No edema Objective Labs Result Diagrams: 10/19/19 15:00 10/19/19 15:00 Labs: Laboratory Results - last 24 hr 10/19/19 10/19/19 10/19/19 15:00 15:00 15:00 WBC 10.7 RBC 4.24 L Hgb 12.7 L Hct 36.4 L MCV 85.8 MCH 29.8 MCHC 34.8 RDW 13.4 Plt Count 147 L Neut % (Auto) 88.7 H Lymph % (Auto) 4.7 L Harlan % (Auto) 5.9 Eos % (Auto) 0.1 L Baso % (Auto) 0.6 Neut # (Auto) 9500 H Lymph # (Auto) 500 L Harlan # (Auto) 600 Eos # (Auto) 0 Baso # (Auto) 100 ESR VBG pH VBG pCO2 VBG pO2 VBG HCO3 VBG Total CO2 VBG O2 Saturation VBG Base Excess Sodium 133 L Potassium 3.8 Chloride 98 Carbon Dioxide 25 BUN 14 Creatinine 0.91 Estimated GFR > 60.0 BUN/Creatinine Ratio 15.4 Glucose 98 Lactate Calcium 8.9 Ferritin Total Bilirubin 0.8 AST 115 H ALT 125 H Alkaline Phosphatase 78 C-Reactive Protein Total Protein 7.1 Albumin 4.3 Globulin 2.8 Albumin/Globulin Ratio 1.5 Procalcitonin 1.09 H Urine Color Urine Appearance Urine pH Ur Specific [place] Urine Protein Urine Glucose (UA) Urine Ketones Urine Occult Blood Urine Nitrate Urine Bilirubin Urine Urobilinogen Ur Leukocyte Esterase Urine RBC Urine WBC Urine Bacteria Ur Culture Indicated? Nasal Screen MRSA (PCR) A. baumannii (PCR) Yola albicans (PCR) C. glabrata (PCR) C. krusei (PCR) C. parapsilosis (PCR) C. tropicalis (PCR) COVID-19 PCR Enterobacteriac sp PCR E. cloacae complex PCR Enterococcus sp PCR E. coli (PCR) H. influenzae (PCR) Klebsiella oxytoca PCR Klebsiella pneumoniae List. monocytogenes PCR N. meningitidis (PCR) Proteus species (PCR) Serratia marcescens PCR Staphylococcus sp PCR Staph aureus (PCR) mecA-Methicil Res Gene Streptococcus sp PCR Group A Strep (PCR) Strep agalactiae (PCR) Strep pneumoniae (PCR) P. aeruginosa (PCR) Mariajose/B-Vanco Res Genes KPC-Carbap Res Gene PCR 10/19/19 10/19/19 10/19/19 15:00 15:00 15:00 WBC RBC Hgb Hct MCV MCH MCHC RDW Plt Count Neut % (Auto) Lymph % (Auto) Harlan % (Auto) Eos % (Auto) Baso % (Auto) Neut # (Auto) Lymph # (Auto) Harlan # (Auto) Eos # (Auto) Baso # (Auto) ESR 34 H VBG pH VBG pCO2 VBG pO2 VBG HCO3 VBG Total CO2 VBG O2 Saturation VBG Base Excess Sodium Potassium Chloride Carbon Dioxide BUN Creatinine Estimated GFR BUN/Creatinine Ratio Glucose Lactate 3.1 H Calcium Ferritin Total Bilirubin AST ALT Alkaline Phosphatase C-Reactive Protein 8.4 H Total Protein Albumin Globulin Albumin/Globulin Ratio Procalcitonin Urine Color Urine Appearance Urine pH Ur Specific [place] Urine Protein Urine Glucose (UA) Urine Ketones Urine Occult Blood Urine Nitrate Urine Bilirubin Urine Urobilinogen Ur Leukocyte Esterase Urine RBC Urine WBC Urine Bacteria Ur Culture Indicated? Nasal Screen MRSA (PCR) A. baumannii (PCR) Yola albicans (PCR) C. glabrata (PCR) C. krusei (PCR) C. parapsilosis (PCR) C. tropicalis (PCR) COVID-19 PCR Enterobacteriac sp PCR E. cloacae complex PCR Enterococcus sp PCR E. coli (PCR) H. influenzae (PCR) Klebsiella oxytoca PCR Klebsiella pneumoniae List. monocytogenes PCR N. meningitidis (PCR) Proteus species (PCR) Serratia marcescens PCR Staphylococcus sp PCR Staph aureus (PCR) mecA-Methicil Res Gene Streptococcus sp PCR Group A Strep (PCR) Strep agalactiae (PCR) Strep pneumoniae (PCR) P. aeruginosa (PCR) Mariajose/B-Vanco Res Genes KPC-Carbap Res Gene PCR 10/19/19 10/19/19 10/19/19 15:00 15:00 16:05 WBC RBC Hgb Hct MCV MCH MCHC RDW Plt Count Neut % (Auto) Lymph % (Auto) Harlan % (Auto) Eos % (Auto) Baso % (Auto) Neut # (Auto) Lymph # (Auto) [place] # (Auto) Eos # (Auto) Baso # (Auto) ESR VBG pH 7.65 H VBG pCO2 17.8 L VBG pO2 62 H VBG HCO3 20 L VBG Total CO2 20 L VBG O2 Saturation 96 H VBG Base Excess -1.0 L Sodium Potassium Chloride Carbon Dioxide BUN Creatinine Estimated GFR BUN/Creatinine Ratio Glucose Lactate Calcium Ferritin 337 Total Bilirubin AST ALT Alkaline Phosphatase C-Reactive Protein Total Protein Albumin Globulin Albumin/Globulin Ratio Procalcitonin Urine Color Urine Appearance Urine pH Ur Specific [place] Urine Protein Urine Glucose (UA) Urine Ketones Urine Occult Blood Urine Nitrate Urine Bilirubin Urine Urobilinogen Ur Leukocyte Esterase Urine RBC Urine WBC Urine Bacteria Ur Culture Indicated? Nasal Screen MRSA (PCR) A. baumannii (PCR) Not detected Yola albicans (PCR) Not detected C. glabrata (PCR) Not detected C. krusei (PCR) Not detected C. parapsilosis (PCR) Not detected C. tropicalis (PCR) Not detected COVID-19 PCR Enterobacteriac sp PCR Not detected E. cloacae complex PCR Not detected Enterococcus sp PCR Detected H E. coli (PCR) Not detected H. influenzae (PCR) Not detected Klebsiella oxytoca PCR Not detected Klebsiella pneumoniae Not detected List. monocytogenes PCR Not detected N. meningitidis (PCR) Not detected Proteus species (PCR) Not detected Serratia marcescens PCR Not detected Staphylococcus sp PCR Not detected Staph aureus (PCR) Not detected mecA-Methicil Res Gene Not Reportable Streptococcus sp PCR Not detected Group A Strep (PCR) Not detected Strep agalactiae (PCR) Not detected Strep pneumoniae (PCR) Not detected P. aeruginosa (PCR) Not detected Mariajose/B-Vanco Res Genes Not detected KPC-Carbap Res Gene PCR Not Reportable 10/19/19 10/19/19 10/19/19 16:36 17:18 17:55 WBC RBC Hgb Hct MCV MCH MCHC RDW Plt Count Neut % (Auto) Lymph % (Auto) [place] % (Auto) Eos % (Auto) Baso % (Auto) Neut # (Auto) Lymph # (Auto) [place] # (Auto) Eos # (Auto) Baso # (Auto) ESR VBG pH VBG pCO2 VBG pO2 VBG HCO3 VBG Total CO2 VBG O2 Saturation VBG Base Excess Sodium Potassium Chloride Carbon Dioxide BUN Creatinine Estimated GFR BUN/Creatinine Ratio Glucose Lactate 0.8 Calcium Ferritin Total Bilirubin AST ALT Alkaline Phosphatase C-Reactive Protein Total Protein Albumin Globulin Albumin/Globulin Ratio Procalcitonin Urine Color Yellow Urine Appearance Clear Urine pH 8.5 H Ur Specific [place] <=1.005 Urine Protein Trace H Urine Glucose (UA) Negative Urine Ketones 2+ H Urine Occult Blood Negative Urine Nitrate Negative Urine Bilirubin Negative Urine Urobilinogen 0.2 Ur Leukocyte Esterase Negative Urine RBC 0-1/hpf Urine WBC 0-1/hpf Urine Bacteria None seen Ur Culture Indicated? Cult not indicated Nasal Screen MRSA (PCR) A. baumannii (PCR) Yola albicans (PCR) C. glabrata (PCR) C. krusei (PCR) C. parapsilosis (PCR) C. tropicalis (PCR) COVID-19 PCR Negative Enterobacteriac sp PCR E. cloacae complex PCR Enterococcus sp PCR E. coli (PCR) H. influenzae (PCR) Klebsiella oxytoca PCR Klebsiella pneumoniae List. monocytogenes PCR N. meningitidis (PCR) Proteus species (PCR) Serratia marcescens PCR Staphylococcus sp PCR Staph aureus (PCR) mecA-Methicil Res Gene Streptococcus sp PCR Group A Strep (PCR) Strep agalactiae (PCR) Strep pneumoniae (PCR) P. aeruginosa (PCR) Mariajose/B-Vanco Res Genes KPC-Carbap Res Gene PCR 10/20/19 00:50 WBC RBC Hgb Hct MCV MCH MCHC RDW Plt Count Neut % (Auto) Lymph % (Auto) [place] % (Auto) Eos % (Auto) Baso % (Auto) Neut # (Auto) Lymph # (Auto) [place] # (Auto) Eos # (Auto) Baso # (Auto) ESR VBG pH VBG pCO2 VBG pO2 VBG HCO3 VBG Total CO2 VBG O2 Saturation VBG Base Excess Sodium Potassium Chloride Carbon Dioxide BUN Creatinine Estimated GFR BUN/Creatinine Ratio Glucose Lactate Calcium Ferritin Total Bilirubin AST ALT Alkaline Phosphatase C-Reactive Protein Total Protein Albumin Globulin Albumin/Globulin Ratio Procalcitonin Urine Color Urine Appearance Urine pH Ur Specific [place] Urine Protein Urine Glucose (UA) Urine Ketones Urine Occult Blood Urine Nitrate Urine Bilirubin Urine Urobilinogen Ur Leukocyte Esterase Urine RBC Urine WBC Urine Bacteria Ur Culture Indicated? Nasal Screen MRSA (PCR) Negative for mrsa A. baumannii (PCR) Yola albicans (PCR) C. glabrata (PCR) C. krusei (PCR) C. parapsilosis (PCR) C. tropicalis (PCR) COVID-19 PCR Enterobacteriac sp PCR E. cloacae complex PCR Enterococcus sp PCR E. coli (PCR) H. influenzae (PCR) Klebsiella oxytoca PCR Klebsiella pneumoniae List. monocytogenes PCR N. meningitidis (PCR) Proteus species (PCR) Serratia marcescens PCR Staphylococcus sp PCR Staph aureus (PCR) mecA-Methicil Res Gene Streptococcus sp PCR Group A Strep (PCR) Strep agalactiae (PCR) Strep pneumoniae (PCR) P. aeruginosa (PCR) Mariajose/B-Vanco Res Genes KPC-Carbap Res Gene PCR Assessment & Plan Assessment & Plan narrative: Impression 1. Sepsis, secondary to Enterococcus bacteremia, -patient presented with fever, tachycardia, and abdominal pain -CT of the abdomen and pelvis, abdominal ultrasound unrevealing at this point. -blood cultures positive for Enterococcus -patient to continue on Zosyn and vancomycin until cultures and sensitivities available -given enlarged common bile duct, will obtain MRCP to rule out biliary obstruction -patient has a bioprosthetic valve, will obtain 2D echo to rule out the possibility of SBE -if MRCP is negative, and 2D echo negative, consider infectious disease consultation and possible transesophageal echocardiogram. Plan -await MRCP -await cardiac echo -await culture and sensitivity -continue Zosyn and vancomycin
--- NOTE | 2019-10-20 13:33 | CM.DANOTE ---
DC Assessment: EMR reviewed: Patient is a 58 yr old male who was admitted through the ED for sepsis. Patients PCP is Dr Gatica. CM/RN met with the patient and patients briefly and explained role. Patient was alert and oriented x3 at time of CM visit. patient currently lives with his Melisa in a single family home in [place]. Patient states he is Independent with all ADLS and drives at base line. Patient is having an ECHO today and MRCP is pending. I: [facility] Plan D/C home with family when medically stable. If patient needs help at home and it is determined closer to D/C they family is open to services if it is needed. No identified d/c planning needs noted at this time. CM department will follow to assist with any D/C planning needs that may arise. Melisa Rice RN Discharge Planning/Care Management CM Discharge Assessment Start: 10/20/19 13:31 Freq: Status: Active Protocol: Document 10/20/19 13:31 HS (Rec: 10/20/19 13:33 HS [id number]) Discharge Planning Assessment Assigned Fence Repairman Melisa Rice RN DPOA/Assigned Designee Name Melisa York () Contact Information [phone] Advance Directives? No History Provided By Patient Has Patient been admitted in last 30 No days? Prior Living Arrangements House Household Members spouse Type of transporation used prior to Drives own vehicle admit Independent with ADL's Yes Is patient alert and oriented? Yes Caregiver for Another No Discharge Plan Home Whiteboard Updated in Patient Room with Yes name and ext. # of Fence Repairman Review Status In Process Next Review Type Continued Stay Review i
[2019-10-20 18:59] LABS: Vancomycin Trough 11.9 ug/mL (10-20)
[2019-10-20] MEDS: VANCOMYCIN TROUGH 1 REQUEST MISC (19:46)
[2019-10-21] VITALS (11 sets, daily range): BP systolic 101–145; BP diastolic 56–85; PULSE 61–77; RESP 16–20; TEMP 36–37.7; O2SAT 97–100
[2019-10-21] MEDS: PIPERACILLIN-TAZO 3.375 GM/50 ML FROZ.PIGGY IV ×5 (00:22→23:45)
[2019-10-21] MEDS: SODIUM CHLORIDE 0.9% 1,000 ML 100 ML IV (02:56)
[2019-10-21] MEDS: VANCOMYCIN 1,000 MG/200 ML PIGGYBACK 100 MG IV ×3 (02:56→18:51)
[2019-10-21 05:07] LABS: Add Manual Diff / Slide Review NO; Basophils Absolute Auto 0 /uL (0-100); Basophils Percent Auto 0.7 % (0-2); Eosinophils Absolute Auto 100 /uL (0-450); Hematocrit 31.5 % (41-53); Hemoglobin 10.8 g/dL (13.5-17.5); Lymphocytes Absolute Auto 1200 /uL (1100-4500); Lymphocytes Percent Auto 20.2 % (25-40); Mean Corpuscular HGB Conc 34.2 % (30-36); Mean Corpuscular Hemoglobin 29.7 PG (26-34); Mean Corpuscular Volume 86.8 fL (80-100); Monocytes Absolute Auto 900 /uL (0-900); Monocytes Percent Auto 15.8 % (3-14); Neutrophils Absolute Auto 3600 /uL (1500-7000); Neutrophils Percent Auto 62.3 % (50-75); Platelet Count 115 X10^3/uL (150-400); Red Blood Cell Count 3.63 X10^6/uL (4.5-5.9); Red Cell Distribution Width 13.8 % (11.6-14.8); White Blood Cell Count 5.7 X10^3/uL (4.5-11.0)
[2019-10-21 05:18] LABS: Alanine Aminotransferase 273 IU/L (<50); Albumin 3.1 g/dL (3.5-5.0); Albumin Globulin Ratio 1.2 (1.0-2.8); Alkaline Phosphatase 122 U/L (38-126); Aspartate Aminotransferase 225 IU/L (17-59); BUN Creatinine Ratio 8.9 (6-22); Bilirubin Total 0.5 mg/dL (0.2-1.3); Blood Urea Nitrogen 9 mg/dL (9-20); Calcium 8.1 mg/dL (8.4-10.2); Carbon Dioxide 24 mmol/L (22-32); Chloride 108 mmol/L (98-107); Estimated Glomerular Filt Rate > 60.0 mL/min (>60); Globulin 2.6 g/dL (1.7-4.1); Glucose 95 mg/dL (80-110); HEMOLYSIS < 15 (0-50); Sodium 138 mmol/L (137-145); Total Protein 5.7 g/dL (6.3-8.2)
[2019-10-21 05:44] LABS: Creatine Kinase 60 U/L (55-170)
[2019-10-21 05:57] LABS: Troponin I < 0.012 ng/mL (0.01-0.034)
[2019-10-21 05:58] LABS: Troponin I < 0.012 ng/mL (0.01-0.034)
[2019-10-21 06:09] LABS: Appearance Urine UA CLEAR; Bilirubin Urine UA NEGATIVE (NEGATIVE); Color Urine UA YELLOW; Glucose Urine UA NEGATIVE (Negative); Ketones Urine UA NEGATIVE (NEGATIVE); Leukocyte Esterase Urine UA NEGATIVE (NEGATIVE); Nitrite Urine UA NEGATIVE (Negative); Occult Blood Urine UA NEGATIVE (Negative); Protein Urine UA NEGATIVE (Negative); RBC Urine None Seen (0-5/HPF); Specific Gravity Urine UA <=1.005 (1.000-1.035); Urobilinogen Urine UA 0.2 E.U./dL (0.2); WBC Urine None Seen (0-5/HPF)
[2019-10-21 06:12] LABS: D Dimer 934 ng/mL (<230)
[2019-10-21 06:18] LABS: Amorphous Sediment Urine 1+; Bacteria Urine Occasional (0-1); Culture Indicated Urine Cult Not Indicated; Squamous Epithelial Cell Urine 0-1 /HPF (0-5/HPF)
--- NOTE | 2019-10-21 07:23 | PC.NURSE ---
NOC Note: Pt reported chest and bilateral back pain at 0530. Pt reported the chest pain as burning, non-radiating 5-10/14. Notified EDINSON Berger and recieved orders for UA, Trops, D-dimer and EKG. Orders carried out.
[2019-10-21] MEDS: NITROGLYCERIN 0.3 MG SL TAB SL (07:34)
[2019-10-21] MEDS: MORPHINE 2 MG/ML INJ IV (07:58)
[2019-10-21] MEDS: ENOXAPARIN 40 MG/0.4 ML SYRINGE SUBCUT (07:59)
[2019-10-21] MEDS: ASPIRIN EC 81 MG TABLET PO (07:59)
[2019-10-21 11:02] LABS: Lipase 55 U/L (23-300)
--- NOTE | 2019-10-21 12:59 | DI.CT.S_ITS ---
PROCEDURE: CT ANGIO CHEST INDICATIONS: r/o PE TECHNIQUE: After the administration of intravenous contrast, 2 mm thick sections acquired from the pulmonary apices to the posterior costophrenic angles. 3-dimensional maximum intensity projection (MIP) coronal and sagittal reformats were then acquired through the thorax. For radiation dose reduction, the following was used: automated exposure control, adjustment of mA and/or kV according to patient size. COMPARISON: None. FINDINGS: Image quality: Excellent. Pulmonary arteries: Pulmonary arteries are normal in size, and demonstrate no intraluminal filling defects to suggest central pulmonary embolism. Lungs and pleura: Minimal bilateral pleural effusions. Central and peripheral airways are patent. Mediastinum: Heart size is milldy prominent, without pericardial effusion. No mediastinal or hilar adenopathy. Thoracic aorta is normal in caliber and enhancement. Esophagus is normal in caliber, with mild to moderate hiatal hernia. Bones and chest wall: No suspicious bony lesions. Ribs and thoracic spine appear intact throughout. Thyroid gland is unremarkable. No axillary or supraclavicular adenopathy. Abdomen: Visualized upper abdominal solid organs appear normal in the early arterial phase of enhancement. IMPRESSION: 1. No acute pulmonary process. 2. Minimal effusions. Dictated by: Enid Jane M.D. on 10/21/2019 at 14:32 Approved by: Enid Jane M.D. on 10/21/2019 at 14:35
--- NOTE | 2019-10-21 14:13 | PC.NURSE ---
Day Shift Note Pt transferred to room 211 at 1400 on his return from CT scan. Report given to Alicia YUEN and introduced to patient and pt's . Pt had instance of chest pain this AM to left chest that radiated to back. Nitroglycerin x1 given and pain unchanged - remained 6/10. Md updated and order received for morphine 2 mg IV which was given. On reassessment pt reported pain had decreased to a 2/10 and that he was comfortable. Up walking in halls independently.
--- NOTE | 2019-10-21 14:45 | P.PN_ITS ---
Subjective Subjective Date Patient Seen: 10/21/19 Interval history: Patient is a 58-year-old male who was admitted to the hospital for shaking rigors, fever, bacteremia. Blood cultures are growing Enterococcus. The patient has had extensive workup to include a CT of the abdomen and pelvis, abdominal ultrasound, MRCP of the abdomen, and chest CT which are essentially unremarkable. 2D echo was obtained which showed no evidence of valvular lesion. Overnight the patient developed substernal chest pain. The pain radiated to his back. He had no associated shortness of breath with it. The pain was severe 7/10 in intensity. It lasted several hours and then subsided. Exam Vital Signs (past 8 hours): - 10/21/19 07:34 10/21/19 08:00 10/21/19 08:29 Temperature 97.3 F L Pulse Rate 74 74 Respiratory Rate 18 Blood Pressure 131/70 131/70 Pulse Oximetry 100 97 10/21/19 12:52 Temperature 97.6 F Pulse Rate 74 Respiratory Rate 16 Blood Pressure 134/85 Pulse Oximetry 98 Oxygen Delivery Method Room Air Oxygen Flow Rate 0 Narrative Exam Narrative: Pleasant male in no acute distress Lungs: Clear to auscultation Cardiac exam: Regular rate and rhythm normal S1-S2 with a 2/6 systolic ejection murmur Abdomen: Soft, mildly tender in the right upper quadrant, no rebound tenderness, no board-like rigidity, normoactive bowel tones Extremities: No edema Objective Labs Result Diagrams: 10/21/19 04:46 10/21/19 04:46 Labs: Laboratory Results - last 24 hr 10/20/19 10/21/19 10/21/19 18:19 04:44 04:46 WBC 5.7 RBC 3.63 L Hgb 10.8 L Hct 31.5 L MCV 86.8 MCH 29.7 MCHC 34.2 RDW 13.8 Plt Count 115 L Neut % (Auto) 62.3 D Lymph % (Auto) 20.2 L Snyder % (Auto) 15.8 H Eos % (Auto) 1.0 L Baso % (Auto) 0.7 Neut # (Auto) 3600 Lymph # (Auto) 1200 Snyder # (Auto) 900 Eos # (Auto) 100 Baso # (Auto) 0 D-Dimer Sodium Potassium Chloride Carbon Dioxide BUN Creatinine Estimated GFR BUN/Creatinine Ratio Glucose Calcium Total Bilirubin AST ALT Alkaline Phosphatase Total Creatine Kinase CK-MB (CK-2) CK-MB (CK-2) Rel Index Troponin I Total Protein Albumin Globulin Albumin/Globulin Ratio Lipase 55 Urine Color Urine Appearance Urine pH Ur Specific [place] Urine Protein Urine Glucose (UA) Urine Ketones Urine Occult Blood Urine Nitrate Urine Bilirubin Urine Urobilinogen Ur Leukocyte Esterase Urine RBC Urine WBC Ur Squamous Epith Cells Amorphous Sediment Urine Bacteria Ur Culture Indicated? Vancomycin Trough 11.9 10/21/19 10/21/19 10/21/19 04:46 04:46 04:46 WBC RBC Hgb Hct MCV MCH MCHC RDW Plt Count Neut % (Auto) Lymph % (Auto) [place] % (Auto) Eos % (Auto) Baso % (Auto) Neut # (Auto) Lymph # (Auto) [place] # (Auto) Eos # (Auto) Baso # (Auto) D-Dimer Sodium 138 Potassium 4.0 Chloride 108 H Carbon Dioxide 24 BUN 9 Creatinine 1.01 Estimated GFR > 60.0 BUN/Creatinine Ratio 8.9 Glucose 95 Calcium 8.1 L Total Bilirubin 0.5 AST 225 H ALT 273 H Alkaline Phosphatase 122 Total Creatine Kinase 60 CK-MB (CK-2) TNP CK-MB (CK-2) Rel Index TNP Troponin I < 0.012 < 0.012 Total Protein 5.7 L Albumin 3.1 L Globulin 2.6 Albumin/Globulin Ratio 1.2 Lipase Urine Color Urine Appearance Urine pH Ur Specific [place] Urine Protein Urine Glucose (UA) Urine Ketones Urine Occult Blood Urine Nitrate Urine Bilirubin Urine Urobilinogen Ur Leukocyte Esterase Urine RBC Urine WBC Ur Squamous Epith Cells Amorphous Sediment Urine Bacteria Ur Culture Indicated? Vancomycin Trough 10/21/19 10/21/19 05:46 05:50 WBC RBC Hgb Hct MCV MCH MCHC RDW Plt Count Neut % (Auto) Lymph % (Auto) [place] % (Auto) Eos % (Auto) Baso % (Auto) Neut # (Auto) Lymph # (Auto) [place] # (Auto) Eos # (Auto) Baso # (Auto) D-Dimer 934 H Sodium Potassium Chloride Carbon Dioxide BUN Creatinine Estimated GFR BUN/Creatinine Ratio Glucose Calcium Total Bilirubin AST ALT Alkaline Phosphatase Total Creatine Kinase CK-MB (CK-2) CK-MB (CK-2) Rel Index Troponin I Total Protein Albumin Globulin Albumin/Globulin Ratio Lipase Urine Color Yellow Urine Appearance Clear Urine pH 6.0 Ur Specific [place] <=1.005 Urine Protein Negative Urine Glucose (UA) Negative Urine Ketones Negative Urine Occult Blood Negative Urine Nitrate Negative Urine Bilirubin Negative Urine Urobilinogen 0.2 Ur Leukocyte Esterase Negative Urine RBC None seen Urine WBC None seen Ur Squamous Epith Cells 0-1 /hpf Amorphous Sediment 1+ Urine Bacteria Occasional (0-1) Ur Culture Indicated? Cult not indicated Vancomycin Trough Assessment & Plan Assessment & Plan narrative: Impression 1. 58-year-old male admitted to the hospital with severe sepsis -patient admitted with fever to 101, elevated lactate, bacteremia, and hypotension -blood cultures growing Enterococcus, culture and sensitivity still pending -2D echo reveals no evidence of aortic valve endocarditis, given the patient's bioprosthetic valve would recommend transesophageal echocardiogram -discussed with Cardiology, Dr. Herzog at [facility]. He concurs with the need for PEDRO. Will arrange for transfer in the next 2 days -patient to continue on IV Zosyn and IV Vanco until cultures and sensitivity are available -urine culture not indicated, UA negative 2. Elevated liver function tests -etiology unclear -statin discontinue -LFTs may be related to underlying sepsis -abdominal ultrasound negative for gallbladder disease, abdominal CT negative for intra-abdominal pathology, MRCP shows minimally dilated and a tapering pancreatic duct -given elevated LFTs patient will need further evaluation to possible include ERCP -no abdominal pain -will continue to follow LFTs closely 3. Chest pain -etiology unclear -EKG reveals sinus rhythm, troponin negative, CT angio negative for pulmonary emboli, no etiology of chest pain identified Plan -repeat cultures today -repeat blood cultures in 2 days -transfer to [facility] for transesophageal echocardiogram tomorrow or the next day -will arrange for PICC line -infectious disease and cardiology consultation upon arrival to [facility]
--- NOTE | 2019-10-21 22:47 | PC.NURSE ---
A&OX3. 99%RA. no chest pain, nausea, dizziness or sob. independent in the room. voiding and eliminating without difficulty. call light in reach. ambulated in hallways.
[2019-10-22] VITALS (7 sets, daily range): BP systolic 125–134; BP diastolic 71–84; PULSE 63–75; RESP 18; TEMP 36.8–37.2; O2SAT 96–99
[2019-10-22] MEDS: VANCOMYCIN 1,000 MG/200 ML PIGGYBACK 100 MG IV ×2 (01:40→10:25)
[2019-10-22] MEDS: PIPERACILLIN-TAZO 3.375 GM/50 ML FROZ.PIGGY IV ×2 (06:30→12:42)
[2019-10-22 06:31] LABS: Add Manual Diff / Slide Review NO; Basophils Absolute Auto 0 /uL (0-100); Basophils Percent Auto 0.7 % (0-2); Eosinophils Absolute Auto 100 /uL (0-450); Eosinophils Percent Auto 1.3 % (2-4); Hematocrit 32.1 % (41-53); Hemoglobin 11.1 g/dL (13.5-17.5); Lymphocytes Absolute Auto 1000 /uL (1100-4500); Lymphocytes Percent Auto 18.2 % (25-40); Mean Corpuscular HGB Conc 34.5 % (30-36); Mean Corpuscular Hemoglobin 29.7 PG (26-34); Mean Corpuscular Volume 86.2 fL (80-100); Monocytes Absolute Auto 600 /uL (0-900); Monocytes Percent Auto 12.1 % (3-14); Neutrophils Absolute Auto 3600 /uL (1500-7000); Neutrophils Percent Auto 67.7 % (50-75); Platelet Count 152 X10^3/uL (150-400); Red Blood Cell Count 3.72 X10^6/uL (4.5-5.9); Red Cell Distribution Width 13.5 % (11.6-14.8); White Blood Cell Count 5.3 X10^3/uL (4.5-11.0)
[2019-10-22 06:33] LABS: Alanine Aminotransferase 218 IU/L (<50); Albumin 3.4 g/dL (3.5-5.0); Albumin Globulin Ratio 1.3 (1.0-2.8); Alkaline Phosphatase 155 U/L (38-126); Aspartate Aminotransferase 113 IU/L (17-59); BUN Creatinine Ratio 8.3 (6-22); Bilirubin Total 0.7 mg/dL (0.2-1.3); Blood Urea Nitrogen 7 mg/dL (9-20); Calcium 8.7 mg/dL (8.4-10.2); Carbon Dioxide 24 mmol/L (22-32); Chloride 106 mmol/L (98-107); Estimated Glomerular Filt Rate > 60.0 mL/min (>60); Globulin 2.7 g/dL (1.7-4.1); Glucose 89 mg/dL (80-110); HEMOLYSIS < 15 (0-50); Potassium 3.4 mmol/L (3.4-5.1); Sodium 137 mmol/L (137-145); Total Protein 6.1 g/dL (6.3-8.2)
[2019-10-22] MEDS: ENOXAPARIN 40 MG/0.4 ML SYRINGE SUBCUT (09:08)
[2019-10-22] MEDS: ASPIRIN EC 81 MG TABLET PO (09:08)
[2019-10-22] MEDS: ACETAMINOPHEN 325 MG TABLET 650 MG PO (09:08)
[2019-10-22] MEDS: POTASSIUM CHLORIDE 20 MEQ TAB 40 MEQ PO (13:59)
--- NOTE | 2019-10-22 14:19 | DI.RAD.S_ITS ---
PROCEDURE: XR CHEST FOR PICC 1V INDICATIONS: line placement COMPARISON: [facility], CR, XR CHEST 1V, 10/19/2019, 15:03. FINDINGS: PICC was placed by the intravenous therapy team from the right side. Fluoroscopic spot film demonstrates the tip of PICC projecting to the area of distal SVC. IMPRESSION: Tip of PICC projects to the area of distal SVC. Dictated by: Radha Fitzpatrick MD, PhD on 10/22/2019 at 14:54 Approved by: Radha Fitzpatrick MD, PhD on 10/22/2019 at 14:55
--- NOTE | 2019-10-22 14:56 | P.DS_ITS ---
History of Present Illness History of Present Illness Date Patient Seen: 10/19/19 Chief complaint: fever up to 103, shaking, SOB Narrative: Written by Dr. De La Cruz: Patient is 58-year-old male with history tissue heart valve for aortic stenosis who presents to the emergency department with almost 2 day history of fever and rigors. He developed acute onset of rigors and high fevers around midnight Sunday. He states he has been shaking almost nonstop to point of fatigue and unable to fall asleep. His temperature has been as high as 103.8 at home. He has also noticed significant discomfort across his lower abdomen. He has felt a little bloated which she attributed to homemade chili a couple of days ago but had last bowel movement today. He denies any dyspnea, cough, nausea, vomiting, flank pain, urinary urgency or discomfort. He has some headache which he attr ibutes to not sleeping and fevers. Initial vitals in the ED he was normotensive with blood pressure in the 120s over 70s. However his blood pressure has been trending down into the 80s/50s in spite of 2 L fluid resuscitation. He is mildly tachycardic with rate anywhere from 80 to around 100, temp 100.1?, respirations 16-24, O2 sat 98% room air. Chest x-ray without acute findings. He had abdomen and pelvic CT which showed fatty liver, fat containing umbilical hernia, right inguinal hernia without acute findings. Abdominal ultrasound indicated dilated CBD measuring up to 10 mm without gallstones or other obvious cause of obstruction and with normal appearing gallbladder. Labs: WBC 10.7, 88.7% neutrophils, hemoglobin 12.7, BUN 14, creatinine 0.9, lactate 3.1, AST 115, ALT 125, bili 0.8, and procalcitonin 1.09. Blood cultures were sent. Urine was obtained after IV antibiotics but microscopic does not indicate infection. He was started on Zosyn and vancomycin in the ED. Discharge Providers Provider Date of admission: 10/19/19 17:46 Discharge Date: 10/22/19 Primary care physician: Sander Gatica MD Discharge provider: Janeth Nguyen DO Summary Hospital Course Discharge Diagnosis: 1. Acute Enterococcus faecalis bacteremia, likely secondary to acalculous cholecystitis, present on admission. Resolving. 2. Acute mild transaminitis, present on admission. Resolving. 3. Acute chest pain, not present on admission. Resolved. 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 1. Acute Enterococcus faecalis bacteremia, likely secondary to acalculous cholecystitis, present on admission. Resolving. -Patient presented febrile with reported fever of 103? F at home (T-max in- hospital 100.1? F), tachycardic, tachypneic with elevated lactate, bacteremia, and hypotension. -Blood cultures on 10/18 grew 4:4 Enterococcus faecalis resistant to erythromycin and intermediate to doxycycline. Repeat blood cultures on 10/20 have no growth to date. Infectious Disease recommended another set of repeat blood cultures. -Initial WBC normal at 10.7 and trended down now 5.3. Initial procalcitonin e levated at 1.09 and trending down now 0.67. -Echocardiogram did not demonstrate any evidence of evidence of valvular vegetations. Previous provider discussed case with infectious disease who recommended YENNIFER given patient's bioprosthetic aortic valve. -Previous provider discussed with Cardiology, Dr. Rivas, at [facility] who also recommended YENNIFER for which the patient is being transferred to [facility] for acute higher level of care and yennifer. -Continued Zosyn 3.375 g every 6 hours and vancomycin with dosing per pharmacist pending blood culture identification and sensitivities. Recommended continued discussion with Cardiology and Infectious Disease regarding specific IV antibio tics and duration pending YENNIFER. PICC line placed. 2. Acute mild transaminitis, present on admission. Resolving. -Likely secondary to acalculous cholecystitis as above versus biliary stasis of acute infection. -Discontinued statin for now. -Abdominal ultrasound demonstrated normal gallbladder and dilated common bile duct measuring up to 10 mm with no obvious visualized cause of obstruction. 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 -Previous provider discussed ERCP with GI who due to no bilirubin elevation, LFTs improving and no significant abdominal discomfort would not perform ERCP at this time. Initial LFTs: Total bilirubin 0.8, AST 115, ALT 125 and alkaline phosphatase 78. AST and ALT trended up to 225 in 273, respectively. LFTs now trending down: Total bilirubin 0.7, AST 113, ALT 218 and alkaline phosphatase 155. 3. Acute chest pain, not present on admission. Resolved. -Etiology unclear but possibly due to valvular involvement/vegetations in setting of bacteremia? -EKG unchanged and demonstrated sinus rhythm without acute ischemic changes such as ST elevation or depression. Troponin negative. -CTA chest negative for pulmonary emboli. Exam Vital Signs (past 8 hours): - 10/22/19 07:00 10/22/19 09:00 10/22/19 11:00 Temperature 98.2 F 98.5 F Pulse Rate 75 63 Respiratory Rate 18 18 Blood Pressure 134/84 125/71 Pulse Oximetry 98 96 97 10/22/19 13:00 Temperature Pulse Rate Respiratory Rate Blood Pressure Pulse Oximetry 97 Oxygen Delivery Method Room Air Oxygen Flow Rate 0 Narrative Exam Narrative: General: Middle-aged male sitting in bed and in no acute distress, well-developed, well-nourished, mildly anxious but otherwise appropriately interactive. HEENT: Normocephalic, atraumatic. External ears without defect. Pupils equal, round, and reactive to light. Anicteric sclerae, moist conjunctivae, and no lid lag. Oropharynx free of erythema and cobble stoning with moist mucosa. Neck: Supple with full range of motion. No JVD. No lymphadenopathy or thyromegaly. Cardiovascular: Regular rate and rhythm with +2/6 ejection murmur at LSB. No rubs or gallops appreciated. Pulmonary: Clear to auscultation bilaterally without crackles, wheezes, or rhonchi. Normal respiratory effort with no use of accessory muscles. Abdomen: Soft, slightly protuberance, no significant tenderness to palpation, non-distended. No hepatosplenomegaly or masses appreciated. Extremities: No clubbing, cyanosis, or edema. Skin: Normal temperature, turgor, and texture; no rash, ulcers, or subcutaneous nodules appreciated. Neurological: Cranial nerves grossly intact. Normal muscle strength, tone, and bulk. Reflexes, coordination, and sensory function within normal limits. No known gait impairment. Psychiatric: Mildly anxious mood and normal affect. Alert and oriented to person, place, and time. Objective Labs Result Diagrams: 10/22/19 06:09 10/22/19 06:09 Labs: Laboratory Results - last 24 hr 10/22/19 10/22/19 06:09 06:09 WBC 5.3 RBC 3.72 L Hgb 11.1 L Hct 32.1 L MCV 86.2 MCH 29.7 MCHC 34.5 RDW 13.5 Plt Count 152 Neut % (Auto) 67.7 Lymph % (Auto) 18.2 L [place] % (Auto) 12.1 Eos % (Auto) 1.3 L Baso % (Auto) 0.7 Neut # (Auto) 3600 Lymph # (Auto) 1000 L [place] # (Auto) 600 Eos # (Auto) 100 Baso # (Auto) 0 Sodium 137 Potassium 3.4 Chloride 106 Carbon Dioxide 24 BUN 7 L Creatinine 0.84 Estimated GFR > 60.0 BUN/Creatinine Ratio 8.3 Glucose 89 Calcium 8.7 Total Bilirubin 0.7 AST 113 H ALT 218 H Alkaline Phosphatase 155 H Total Protein 6.1 L Albumin 3.4 L Globulin 2.7 Albumin/Globulin Ratio 1.3 Discharge Plan Discharge Plan Patient Disposition: [facility] Under care of provider: Dr. Inman Discharge orders & Medications Follow up/Referrals: Sander Gatica MD [Primary Care Provider] - Diet/Activity/Treatments Diet: Low-fat, Low-sodium and Low-cholesterol Activity: Activity as tolerated Discharge Data Primary Care Provider: Sander Gatica Discharges patient from system. Discharge Date/Time: 10/22/19 16:25
--- NOTE | 2019-10-22 15:06 | PC.NURSE ---
Pt sitting up in bed visiting with Spouse. Pt has been seen by Dr. Nguyen and will be transferred to [place] today for PEDRO. PICC line placed. Awaiting finalization of transfer details. Pt's Spouse has been authorized by Dr. Nguyen to transfer Pt via private vehicle and they are aware of the necessity to go straight there for continuance of care.
--- NOTE | 2019-10-22 15:13 | CM.DPC ---
DCP/continued: Reviewed chart. Patient continues to be completely I in room. Spouse/Melisa at bedside. Spoke with provider/Dr. Nguyen and she reports that patient will be transferring to [facility] today for further cardiac treatment. PICC line placed today for potential long-term IV abx. [employer] met with patient and spouse prior to departure. Provided them with information pertaining to home infusion, and outpatient infusion. Patient and spouse very appreciative of information. It is unclear at this time whether or not patient will need IV abx. However, patient and spouse aware that arrangements will be coordinated through discharging hospital. P: Transfer to [facility] today. Infusion information provided for home and outpatient. ARELIS Tao
--- NOTE | 2019-10-22 16:32 | PC.NURSE ---
pt dc using their own private vehicle, okayed by provider. IV dc'd. pt was dc'd with LUE picc line. report given to nurse in [facility]. all belongings returned to patient. dc packet with patient.
[2019-10-22 16:33] LABS: Procalcitonin 0.67 ng/mL (<0.5)
== END 2019-10-22 16:25 | disposition short-term general hospital (02) | DRG 872 ==
LOC: ED 16:51 → AC 17:47 → ICU 10-20 09:13 → AC 10-21 13:27
PROVIDERS: Internal Medicine; Nurse Practitioner Family; Admitting Provider Internal Medicine; Emergency Provider Emergency Medicine; PCP Student in an Organized Health Care Education/Training Program; Referring Provider Emergency Medicine; Visit Provider Internal Medicine
DX: A41.81 Sepsis due to Enterococcus (principal); R65.20 Severe sepsis without septic shock; I95.9 Hypotension, unspecified; K81.9 Cholecystitis, unspecified; R74.0 Nonspecific elevation of levels of transaminase and lactic acid dehydrogenase [LDH]; R51 Headache; R07.9 Chest pain, unspecified; Z95.3 Presence of xenogenic heart valve
CPT/HCPCS: 36415; 36569; 51798; 71045; 71275; 74177; 74181; 76705; 80053; 80202; 81001; 82550; 82728; 82805; 83605; 83690; 84145; 84484; 85025; 85379; 85651; 86140; 87040; 87150; 87186; 87205; 87635; 87797; 93005; 93306; 96361; 96365; 96367; 96375; 99285; J1650; J2060; J2270; J2405; J2543; Q9967

== ENCOUNTER 2019-12-02 23:21 | Emergency (ER) | payer OTHER, SELFPAY ==
[2019-10-19 18:39] VITALS: BMI 26.6
[2019-12-02 23:32] VITALS: BP 135/79; PULSE 70; RESP 16; TEMP 36.5; O2SAT 100; BMI 26.6
--- NOTE | 2019-12-02 23:35 | ED_ITS ---
HPI - Abdominal Pain General Chief Complaint: Abdominal Pain Stated Complaint: abd pain into chest PICC line removed yesterday Time Seen by Provider: 12/02/19 23:28 History of Present Illness HPI narrative: 59-year-old gentleman with a history of bioprosthetic aortic valve replacement for aortic stenosis, presents with acute onset mid abdominal pain described as cramping sharp radiating through to the back. Had a similar presentation on October 19 with fevers rigors and blood cultures positive for Enterococcus. With that admission he had an abdominal ultrasound that showed a normal gallbladder and common bile duct, CT scan that was relatively unremarkable and an MRI of the abdomen that showed mild intrahepatic biliary ductal dilatation and mild dilatation of the extrahepatic duct with the common bile duct measuring 1.1 cm. He had a negative HIDA scan on October 22. He underwent PEDRO that was reassuring lady normal, no ERCP was recommended with GI discussion, he completed 6 weeks of ampicillin ceftriaxone with the positive blood cultures. He had his PICC line removed at the end of his 6 week antibiotic course yesterday. Today he does not note fevers or rigors, just the pain similar to initial presentation. Related Data Previous Rx's Medication Instructions Recorded aspirin 81 mg PO QDAY #30 tab 02/05/17 Allergies Allergy/AdvReac Type Severity Reaction Status Date / Time sulfadiazine Allergy Severe Anaphylaxis Verified 11/04/19 14:08 oxycodone AdvReac Intermediate Nausea Verified 11/04/19 14:08 Review of Systems Review of Systems Narrative: Pertinent positive and negative findings as per HPI Remainder of review of systems is otherwise unremarkable for Constitutional: Fevers, chills, weakness ENT: No sore throat, neck pain, ear pain CV: Chest pain, palpitations, dyspnea on exertion Respiratory: Cough, wheeze, dyspnea GI: Nausea, vomiting, diarrhea, change in bowel habits, black or bloody stools : Dysuria, hematuria, flank pain MS: Muscle weakness, numbness, joint swelling or warmth Skin: Rashes, nonhealing lesions Neuro: Syncope, dizziness, tingling Patient History Medical History (Updated 12/03/19 @ 02:13 by Roya Maria MD) Aortic stenosis (Chronic) Cardiac arrhythmia (Chronic) Depression (Chronic) Herpes (Chronic ~1996) Hyperlipidemia (Chronic) Sepsis (Acute) Sweet's syndrome (Chronic) Surgical History History of aortic valve replacement History of cardiac cath (Resolved ~2017) Family History Mother Cancer Grandfather Heart disease Grandmother Cancer Grandmother Cancer Social History household members: spouse Smoking Status: Former smoker Smoking Status: Former smoker alcohol intake frequency: 0-2 drinks per day Substance Use Type: does not use Exam Initial Vital Signs Initial Vital Signs: Vital Signs Temperature 97.7 F 12/02/19 23:32 Pulse Rate 70 12/02/19 23:32 Respiratory Rate 16 12/02/19 23:32 Blood Pressure 135/79 12/02/19 23:32 Pulse Oximetry 100 12/02/19 23:32 Course Orders Ordered: ED Orders 12/03/19 00:07 CT abdomen pelvis w con Stat Complete Blood Count AUTO DIFF Stat Comprehensive Metabolic Panel Stat Lactate (Lactic Acid) Stat Lipase Stat Magnesium Stat Procalcitonin Stat Troponin I Stat 12/03/19 00:14 Blood Culture Stat Discontinued Medications Sodium Chloride (Normal Saline 0.9%) 1,000 mls @ 1,000 mls/hr IV BOLUS ONE Stop: 12/03/19 01:05 Last Admin: 12/03/19 00:54 Dose: 1,000 mls/hr Documented by: SAUD Vital Signs Vital signs: Vital Signs - 8 hr 12/02/19 23:32 12/02/19 23:45 12/03/19 00:13 Temperature 97.7 F Pulse Rate 70 70 68 Respiratory Rate 16 18 13 Blood Pressure 135/79 136/82 Pulse Oximetry 100 100 96 12/03/19 00:29 12/03/19 00:30 12/03/19 01:00 Temperature Pulse Rate 68 70 70 Respiratory Rate 12 14 14 Blood Pressure 121/70 112/62 118/57 L Pulse Oximetry 96 97 98 12/03/19 01:30 12/03/19 02:00 Temperature Pulse Rate 71 80 Respiratory Rate 14 22 Blood Pressure 111/55 L 156/79 H Pulse Oximetry 97 99 MDM - Abdominal Pain Medical Records Attestation: I reviewed the patient's medical records. Medical records narrative: Records from recent hospitalization at [facility] obtained and reviewed. Lab Data Attestation: I reviewed the patient's lab results. Result diagrams: 12/02/19 23:45 12/02/19 23:45 Labs: Lab Results 12/02/19 12/02/19 12/02/19 Range/Units 23:45 23:45 23:45 WBC 5.2 (4.5-11.0) X10^3/uL RBC 4.38 L (4.5-5.9) X10^6/uL Hgb 12.8 L (13.5-17.5) g/dL Hct 37.2 L (41-53) % MCV 84.9 (80-100) fL MCH 29.1 (26-34) PG MCHC 34.3 (30-36) % RDW 13.2 (11.6-14.8) % Plt Count 227 (150-400) X10^3/uL Neut % (Auto) 58.8 (50-75) % Lymph % (Auto) 29.5 (25-40) % [place] % (Auto) 8.5 (3-14) % Eos % (Auto) 2.5 (2-4) % Baso % (Auto) 0.7 (0-2) % Neut # (Auto) 3100 (7092-1943) /uL Lymph # (Auto) 1500 (3877-7130) /uL [place] # (Auto) 400 (0-900) /uL Eos # (Auto) 100 (0-450) /uL Baso # (Auto) 0 (0-100) /uL Sodium 135 L (137-145) mmol/L Potassium 3.7 (3.4-5.1) mmol/L Chloride 100 (98-107) mmol/L Carbon Dioxide 26 (22-32) mmol/L BUN 16 (9-20) mg/dL Creatinine 0.98 (0.66-1.25) mg/dL Estimated GFR > 60.0 (>60) mL/min BUN/Creatinine Ratio 16.3 (6-22) Glucose 154 H (80-110) mg/dL Lactate (0.7-2.1) mmol/L Calcium 9.3 (8.4-10.2) mg/dL Magnesium 1.9 (1.6-2.3) mg/dL Total Bilirubin 0.6 (0.2-1.3) mg/dL AST 94 H (17-59) IU/L ALT 58 H (<50) IU/L Alkaline Phosphatase 98 (38-126) U/L Troponin I < 0.012 (0.01-0.034) ng/mL Total Protein 7.3 (6.3-8.2) g/dL Albumin 4.5 (3.5-5.0) g/dL Globulin 2.8 (1.7-4.1) g/dL Albumin/Globulin Ratio 1.6 (1.0-2.8) Lipase 119 (23-300) U/L Procalcitonin < 0.05 (<0.5) ng/mL 12/02/19 Range/Units 23:45 WBC (4.5-11.0) X10^3/uL RBC (4.5-5.9) X10^6/uL Hgb (13.5-17.5) g/dL Hct (41-53) % MCV (80-100) fL MCH (26-34) PG MCHC (30-36) % RDW (11.6-14.8) % Plt Count (150-400) X10^3/uL Neut % (Auto) (50-75) % Lymph % (Auto) (25-40) % [place] % (Auto) (3-14) % Eos % (Auto) (2-4) % Baso % (Auto) (0-2) % Neut # (Auto) (2474-2723) /uL Lymph # (Auto) (9565-6201) /uL [place] # (Auto) (0-900) /uL Eos # (Auto) (0-450) /uL Baso # (Auto) (0-100) /uL Sodium (137-145) mmol/L Potassium (3.4-5.1) mmol/L Chloride (98-107) mmol/L Carbon Dioxide (22-32) mmol/L BUN (9-20) mg/dL Creatinine (0.66-1.25) mg/dL Estimated GFR (>60) mL/min BUN/Creatinine Ratio (6-22) Glucose (80-110) mg/dL Lactate 0.9 (0.7-2.1) mmol/L Calcium (8.4-10.2) mg/dL Magnesium (1.6-2.3) mg/dL Total Bilirubin (0.2-1.3) mg/dL AST (17-59) IU/L ALT (<50) IU/L Alkaline Phosphatase (38-126) U/L Troponin I (0.01-0.034) ng/mL Total Protein (6.3-8.2) g/dL Albumin (3.5-5.0) g/dL Globulin (1.7-4.1) g/dL Albumin/Globulin Ratio (1.0-2.8) Lipase (23-300) U/L Procalcitonin (<0.5) ng/mL Imaging Data CT scan - abdomen/pelvis: Radiologist's Impression: Liver and spleen are unremarkable, serpentine gallbladder with multiple stones, common duct dilated at 1.1 cm, intrahepatic biliary dilatation noted Impression: Cholelithiasis noted with intra and extrahepatic biliary dilation MDM Narrative Medical decision making narrative: 59-year-old gentleman with recurrent abdominal pain CT scan showing cholelithiasis. The colicky nature of the pain including complete resolution without pain medication certainly suggests gallstones. The fact that these were seen on ultrasound CT or MRI 6 weeks ago with similar pain presentation is certainly interesting. Fortunately this time there is no evidence of acute cholecystitis nor infection nor sepsis. Pain has completely resolved. Patient will be discharged home. Recommended follow-up in the next 1-2 days with general surgeon to discuss cholecystectomy. Clearly discussed when to return to the emergency department including fevers, pain, vomiting. Discharge Plan Departure Patient Disposition: Home Clinical Impression: Cholelithiasis Qualifiers: Cholelithiasis location: gallbladder Cholecystitis presence: without cholecys titis Biliary obstruction: without biliary obstruction Qualified Code(s): K80.20 - Calculus of gallbladder without cholecystitis without obstruction Instructions: DI for Gallstones Activity Restrictions/Additional Instructions: Thank you for coming in today Your CT scan today does show gallstones. These were not seen 6 weeks ago with the ultrasound, MRI or CT done at that time. Your pain today is entirely consistent with gallstone and gallbladder disease. At this time, there is no indication of gallbladder infection or recurrent sepsis. It is safe for you to go home. I do want you to contact Dr. Burt office tomorrow (or later today as the case may be) to schedule a consultation appointment regarding gallstones and to discuss having your gallbladder removed. Please return if you have recurrent pain, vomiting, fevers or chills. It was great to see you again Prescriptions: No Action aspirin 81 MG tablet,delayed release (DR/EC) 81 mg PO QDAY Qty: 30 RF: 0 Referrals: Sander Gatica MD [Primary Care Provider] - Angie Osorio MD [Physician] -
[2019-12-02 23:45] VITALS: BP 136/82; PULSE 70; RESP 18; O2SAT 100
--- NOTE | 2019-12-03 00:07 | DI.CT.S_ITS ---
PROCEDURE: CT ABDOMEN PELVIS W CON INDICATIONS: Upper abdominal pain TECHNIQUE: After the administration of intravenous contrast, 5 mm thick sections acquired from the diaphragm to the symphysis. 5 mm coronal and sagittal reformats were acquired. For radiation dose reduction, the following was used: automated exposure control, adjustment of mA and/or kV according to patient size. COMPARISON: [facility], US, US ABDOMEN LIMITED, 10/19/2019, 17:33. [facility], CT, CT ANGIO CHEST, 10/21/2019, 13:30. [facility], MR, MR ABDOMEN WO CON, 10/20/2019, 12:16. [facility], CT, CT ABDOMEN PELVIS W CON, 10/19/2019, 15:46. FINDINGS: Image quality: Excellent. ABDOMEN: Lung bases: Lung bases are clear. Heart size is normal. Solid organs: Liver is normal in size and enhancement. Interval development of numerous small gallstones present in the gallbladder since the studies of mid October,. No gallbladder wall thickening. Interval increase in biliary ductal dilatation. Ducts are dilated to the level of the ampulla. No identifiable common duct stone. Pancreas enhances normally. Spleen is normal in size and enhancement. No adrenal nodules. Kidneys demonstrate normal size and enhancement, without hydronephrosis. Peritoneum and bowel: Bowel loops demonstrate normal wall thickness and caliber. No free fluid or air. Nodes and vessels: No retroperitoneal or mesenteric adenopathy by size criteria. Aorta and inferior vena cava are normal in size. Mild atherosclerotic calcifications. Miscellaneous: No ventral hernias. PELVIS: Genitourinary: Bladder wall thickness is normal. Miscellaneous: Small bilateral inguinal hernias containing fat. Bones: No suspicious bony lesions. No vertebral body compression fractures. IMPRESSION: 1. Interval development of numerous small gallstones. 2. Interval increase in biliary ductal dilatation. Cannot exclude distal duct stone. Comment: Final report is concordant with preliminary interpretation provided by [facility]. Dictated by: Henry Stephen M.D. on 12/03/2019 at 8:29 Approved by: Henry Stephen M.D. on 12/03/2019 at 8:46
[2019-12-03 00:13] VITALS: PULSE 68; RESP 13; O2SAT 96
[2019-12-03 00:17] LABS: Add Manual Diff / Slide Review NO; Basophils Absolute Auto 0 /uL (0-100); Basophils Percent Auto 0.7 % (0-2); Eosinophils Absolute Auto 100 /uL (0-450); Eosinophils Percent Auto 2.5 % (2-4); Hematocrit 37.2 % (41-53); Hemoglobin 12.8 g/dL (13.5-17.5); Lymphocytes Absolute Auto 1500 /uL (1100-4500); Lymphocytes Percent Auto 29.5 % (25-40); Mean Corpuscular HGB Conc 34.3 % (30-36); Mean Corpuscular Hemoglobin 29.1 PG (26-34); Mean Corpuscular Volume 84.9 fL (80-100); Monocytes Absolute Auto 400 /uL (0-900); Monocytes Percent Auto 8.5 % (3-14); Neutrophils Absolute Auto 3100 /uL (1500-7000); Neutrophils Percent Auto 58.8 % (50-75); Platelet Count 227 X10^3/uL (150-400); Red Blood Cell Count 4.38 X10^6/uL (4.5-5.9); Red Cell Distribution Width 13.2 % (11.6-14.8); White Blood Cell Count 5.2 X10^3/uL (4.5-11.0)
[2019-12-03 00:22] LABS: Lactate (Lactic Acid) 0.9 mmol/L (0.7-2.1)
[2019-12-03 00:25] LABS: Alanine Aminotransferase 58 IU/L (<50); Albumin 4.5 g/dL (3.5-5.0); Albumin Globulin Ratio 1.6 (1.0-2.8); Alkaline Phosphatase 98 U/L (38-126); Aspartate Aminotransferase 94 IU/L (17-59); BUN Creatinine Ratio 16.3 (6-22); Bilirubin Total 0.6 mg/dL (0.2-1.3); Blood Urea Nitrogen 16 mg/dL (9-20); Calcium 9.3 mg/dL (8.4-10.2); Carbon Dioxide 26 mmol/L (22-32); Chloride 100 mmol/L (98-107); Estimated Glomerular Filt Rate > 60.0 mL/min (>60); Globulin 2.8 g/dL (1.7-4.1); Glucose 154 mg/dL (80-110); HEMOLYSIS 22 (0-50); Lipase 119 U/L (23-300); Magnesium 1.9 mg/dL (1.6-2.3); Potassium 3.7 mmol/L (3.4-5.1); Sodium 135 mmol/L (137-145); Total Protein 7.3 g/dL (6.3-8.2)
[2019-12-03 00:29] VITALS: BP 121/70; PULSE 68; RESP 12; O2SAT 96
[2019-12-03 00:30] VITALS: BP 112/62; PULSE 70; RESP 14; O2SAT 97
[2019-12-03 00:36] LABS: Troponin I < 0.012 ng/mL (0.01-0.034)
[2019-12-03 00:39] LABS: Procalcitonin < 0.05 ng/mL (<0.5)
[2019-12-03] MEDS: SODIUM CHLORIDE 0.9% 1,000 ML 1000 ML IV (00:54)
[2019-12-03 01:00] VITALS: BP 118/57; PULSE 70; RESP 14; O2SAT 98
[2019-12-03 01:30] VITALS: BP 111/55; PULSE 71; RESP 14; O2SAT 97
[2019-12-03 02:00] VITALS: BP 156/79; PULSE 80; RESP 22; O2SAT 99
== END 2019-12-03 02:26 | disposition home or self-care (01) ==
PROVIDERS: Emergency Provider Emergency Medicine; PCP Student in an Organized Health Care Education/Training Program
DX: K80.20 Calculus of gallbladder without cholecystitis without obstruction (principal); Z95.5 Presence of coronary angioplasty implant and graft
CPT/HCPCS: 36415; 74177; 80053; 83605; 83690; 83735; 84145; 84484; 85025; 87040; 93005; 96360; 96361; 99284; Q9967

== ENCOUNTER → 2019-12-04 06:56 | Outpatient (CLI) | payer OTHER, SELFPAY ==
[2019-10-19 18:39] VITALS: BMI 26.6
--- NOTE | 2019-12-04 | DI.ECHO.S_ITS ---
[facility]---------+ [facility] +---------+ : : [address] : : : : [id number] : : : : Phone: [phone]+ Echocardiogram Report + + :Name: RIZWANA BEASLEY Study Date: 12/04/2019 Height: 67 in : :[facility] Weight: 170 lb : : Gender: Male BSA: 1.9 m2 : :: 1960 Age: 59 yrs BP: 128/70 mmHg: :Reason For Study: Acute and subacute infective endocarditis : :Ordering Physician: JORDAN, : :ALFREDO Performed By: Merna Hansen : :Referring: ALFREDO ORTEGA : + + Interpretation Summary The left ventricle is normal in size and wall thickness. Left ventricular systolic function is normal without focal wall motion abnormalities. The ejection fraction is estimated to be 55-60%. LVEF has not changed since prior study. Diastolic parameters suggest probable normal left ventricular diastolic function and normal filling pressures. The right ventricle is normal in size and function. The right ventricular systolic pressure is estimated to be at least 24 mmHg based on an estimated right atrial pressure of 3 mm Hg. Both atria are normal in size. There is mild mitral regurgitation. There is a bioprosthetic aortic valve. There is trace intravalvular regurgitation through the prosthetic aortic valve. There is mild to moderate tricuspid regurgitation. No obvious echocardiographic findings that would suggest endocarditis. The ascending aorta is mildly enlarged. Procedure: A two-dimensional transthoracic echocardiogram with color flow and Doppler was performed. The study quality was technically adequate. Comparison is made with the echocardiogram of 10/20/2019. The patient was in sinus rhythm with heart rates between 67-76 bpm during the exam. Left Ventricle: The left ventricle is normal in size and wall thickness. Left ventricular systolic function is normal without focal wall motion abnormalities. The ejection fraction is estimated to be 55-60%. Septal motion is consistent with post-operative state. Diastolic parameters suggest probable normal left ventricular diastolic function and normal filling pressures. Right Ventricle: The right ventricle is normal in size and function. Atria: Both atria are normal in size. There is no Doppler evidence for an interatrial shunt. Mitral Valve: The mitral valve is normal in structure and function. There is mild mitral regurgitation. Aortic Valve: There is a bioprosthetic aortic valve. There is trace intravalvular regurgitation through the prosthetic aortic valve. Tricuspid Valve: The tricuspid valve is normal in structure and function. There is mild to moderate tricuspid regurgitation. The right ventricular systolic pressure is estimated to be at least 24 mmHg based on an estimated right atrial pressure of 3 mm Hg. Pulmonic Valve: The pulmonic valve is not well seen, but is grossly normal. There is mild pulmonic regurgitation. Great Vessels: The aortic root is normal size. The ascending aorta is mildly enlarged. The IVC is of normal diameter and collapses greater than 50% with a sniff. This suggests a low right atrial pressure of 3 mm Hg. Pericardium/ Pleura There is no pericardial effusion. There is no pleural effusion. MMode/2D Measurements & Calculations LVIDd: 4.0 cm LVOT diam: 2.0 cm LVIDs: 2.6 cm Ao root diam: 3.5 cm FS: 35.5 % asc Aorta Diam: 3.5 cm EPSS: 0.41 cm Ao Arch Diam (Prox Trans): 2.7 cm IVSd: 0.69 cm LVPWd: 0.89 cm LV yeung. diameter/BSA (cm/m^2): 2.1 LV sys. diameter/BSA (cm/m^2): 1.4 LA A2 area: 18.2 cm2 RA long axis: 4.9 cm LA A4 area: 16.7 cm2 RA area: 16.2 cm2 LA length (vol): 4.8 cm RA vol: 46.0 ml LA vol: 53.8 ml RA : 24.4 ml/m2 LA vol index: 28.5 ml/m2 IVC diam: 1.2 cm RVD1 (basal): 3.7 cm TAPSE: 1.7 cm Doppler Measurements & Calculations Ao V2 max: 189.7 cm/sec LVOT Max Fransico: 107.0 cm/sec Ao V2 mean: 133.2 cm/sec LV V1 max P.6 mmHg Ao max P.4 mmHg LV V1 VTI: 25.0 cm Ao mean P.1 mmHg MITCH(I,D): 1.9 cm2 Ao V2 VTI: 43.6 cm MITCH(V,D): 1.9 cm2 sev ratio: 0.57 MITCH indexed to BSA (cm^2/m^2): 1.0 AI P1/2t: 709.4 msec AI dec slope: 179.5 cm/sec2 MV E max fransico: 99.4 cm/sec TR max fransico: 233.5 cm/sec MV A max fransico: 59.2 cm/sec TR max P.9 mmHg MV E/A: 1.7 PA V2 max: 83.3 cm/sec Med Peak E' Fransico: 11.4 cm/sec PA V2 mean: 58.8 cm/sec E/E' med: 8.7 PA mean P.5 mmHg Lat Peak E' Fransico: 15.9 cm/sec PA pr(Accel): 19.1 mmHg E/E' lat: 6.2 E/e' average: 7.5 MV dec time: 0.18 sec SV(LVOT): 82.3 ml Reading Physician:04:40 PM
== END ==
PROVIDERS: PCP Student in an Organized Health Care Education/Training Program; Referring Provider Internal Medicine; Visit Provider Internal Medicine
DX: I08.1 Rheumatic disorders of both mitral and tricuspid valves (principal); I33.0 Acute and subacute infective endocarditis; I77.89 Other specified disorders of arteries and arterioles; Z95.2 Presence of prosthetic heart valve
CPT/HCPCS: 93306

== ENCOUNTER → 2019-12-08 08:40 | Outpatient (CLI) | payer OTHER, SELFPAY ==
[2019-10-19 18:39] VITALS: BMI 26.6
[2019-12-09 12:53] LABS: COVID19 Sendout Not Detected (Not Detect)
== END ==
PROVIDERS: PCP Student in an Organized Health Care Education/Training Program; Visit Provider Physician Assistant
DX: Z11.9 Encounter for screening for infectious and parasitic diseases, unspecified (principal)
CPT/HCPCS: 87635

== ENCOUNTER 2019-12-10 12:58 | Day surgery (SDC) | payer OTHER, SELFPAY ==
[2019-10-19 18:39] VITALS: BMI 26.6
[2019-12-09 07:08] VITALS: BMI 26.9
[2019-12-10] VITALS (11 sets, daily range): BP systolic 100–156; BP diastolic 60–85; PULSE 68–87; RESP 10–20; TEMP 36.1–36.7; O2SAT 94–99; BMI 25.9
--- NOTE | 2019-12-10 | PATH_ITS ---
[facility] Accession Number: [id number] . 01 Material submitted: . gallbladder - GALLBLADDER AND CONTENTS . 02 Diagnosis: Gallbladder and Contents, Cholecystectomy: Cholelithiasis. Benign adenomyoma. Negative for malignancy. [facility] 12/12/2019 1315 Local . 02 Electronically signed: . Kumar Hyman MD, PhD, Pathologist NPI- [id number] . 01 Gross description: . Specimen A is received in formalin, labeled with patient identification and gallbladder and content. It consists of a disrupted gallbladder measuring 6.6 cm in length and 2.1 cm in diameter. A 0.4 x 0.3 cm disrupted area is located on the body/hepatic surface and is 2.7 cm to the cystic duct margin. The cystic duct margin is stapled shut and is inked blue. The cystic duct is 0.3 cm in diameter. The serosa is pink to yellow-trujillo and diffusely covered by yellow-trujillo adipose tissue. The hepatic surface is yellow-trujillo, ragged, and focally cauterized. Opening the specimen reveals yellow to green and velvety mucosa with multiple yellow and tiny calculi at the neck area, measuring 1.8 x 1.2 x 0.4 cm in aggregate. A 0.8 x 0.7 x 0.5 cm multi-cystic lesion is present within the fundal wall. The lesion is 0.6 cm to the closest hepatic surface (inked black). The wall thickness is up to 0.2 cm. No cystic lymph node candidates are present. Rug Measurer sections are submitted in three cassettes. . Summary of Sections: A1 - Cystic duct margin, shave, one piece. A2 - The entire cystic lesion within the fundal wall to the hepatic surface, three pieces. A3 - Rug Measurer uninvolved mucosa of the gallbladder, two pieces. ([id number]) /[facility] 12/11/2019 1516 Local . 02 Pathologist provided ICD-10: K80.20, K82.8 . 02 CPT . 324525 Performed at: 01 [facility] [address] [id number] MD Mino Ross MD Phone: [phone] Performed at: 02 [facility] [address] [place] [id number] MD Emiliana Mcarthur MD Phone: [phone]
[2019-12-10] MEDS: ACETAMINOPHEN 325 MG TABLET 975 MG PO (14:00)
[2019-12-10] MEDS: LACTATED RINGERS 1,000 ML 42 ML IV (14:01)
[2019-12-10] MEDS: LACTATED RINGERS 1,000 ML 120 ML IV ×2 (14:15→15:37)
--- NOTE | 2019-12-10 14:17 | PM.PREOP ---
Pre-operative Note COVID-19 COVID-19 status: Negative Result date/Date tested (Pos, Neg/Pending): 12/08/19 Interval Note History & Physical reviewed/Exam performed by Physician: Yes Changes to H&P: No
--- NOTE | 2019-12-10 14:23 | SUR.PREOP ---
indocyanine green given as ordered IVpush in pre op.
[2019-12-10] MEDS: PIPERACILLIN-TAZO 3.375 GM/50 ML FROZ.PIGGY IV (14:45)
--- NOTE | 2019-12-10 15:07 | SUR.OPER ---
Supine on padded OR bed, head on pillow, arms secured on padded arm boards at <90 degrees abduction, legs uncrossed, safety belt at thigh, tape over blanket over lower legs.
[2019-12-10] MEDS: BUPIVACAINE 0.25% W/ EPI 30 ML VIAL INJ (15:20)
--- NOTE | 2019-12-10 16:16 | P.OP_ITS ---
Operative Date/Time/Diagnoses Date of procedure: 12/10/19 Time of procedure: 16:16 Pre-op diagnosis: cholelithiasis, cholecystitis Post-op diagnosis: same Procedure & Clinicians Procedure: Laparoscopic cholecystectomy with indocyanine cholangiography Same procedure as scheduled: Yes Indications: 59-year-old man who was diagnosed with sepsis, and treated with IV antibiotics, and ultimately referred for cholecystectomy due to suspicion that his sepsis was caused by cholecystitis. He has sludge in the gallbladder, and abnormal imaging studies which indicate a possible symptomatic cholelithiasis, and cholecystitis. Surgeon: Angie Osorio Click Yes if Unassisted: Yes Anesthesia Type: General Operative Notes Findings: Thickened, intrahepatic gall bladder, non dilated cystic duct, soft talked with no impacted stones; ICG cholangiogram with good visualization of the cystic duct and common bile duct Specimen(s): other (Gallbladder) Estimated Blood Loss (mL): 5 Procedure in detail: In the preop area 25 mg of indocyanine green was given intravenously for fluorescent cholangiography. The patient was brought into the operating room and placed supine on the OR table. Sequential compression devices were placed on both legs and turned on. Appropriate perioperative antibiotics were given prior to the start of surgery. General anesthesia was induced the patient was intubated. The abdomen was prepped and draped in sterile fashion. Surgical time-out was conducted. Local anesthetic was inject ed under the skin just superior to the umbilicus and a 5 mm vertical incision was made at this site. The umbilical stalk was grasped with a Amanda and elevated. A Veress needle was passed through the fascia into proper position. The position was tested with a saline drop test which was appropriate for intra- abdominal Veress needle placement. The abdomen was then insufflated in the usual fashion. Once insufflated to 15 mm Hg the Veress needle was removed and a 5 mm optical trocar was placed under direct vision using a 5 mm 30 degree scope. Once the camera was inside the abdomen I took a look around. There was no injury from port placement. Two additional ports were placed in a similar fashion in the right upper quadrant and a 10 mm port was placed in the epigastrium. Through the 2 lateral ports the gallbladder was grasped and elevated and the infundibulum was retracted laterally to the patient's right. This exposed the gallbladder hilum and allowed for dissection of the cystic duct and cystic artery. At this point the fluorescent lamp was turned on and the cystic duct and common duct were visualized using indocyanine green. We turned back on to normal camera visualization, and began our dissection. There was some moderate scar tissue covering the cystic duct, and the gallbladder was quite folded and intrahepatic. This required tedious careful dissection to free the gallbladder, and expose the cystic duct and artery safely, and to avoid injury to the bile ducts. Once the cystic duct and artery were completely dissected out and I was able to see liver behind and between both structures without any other structures in the way, giving us the critical view of safety. At this point I triply clipped both structures on the patient's side and put a single clip on the gallbladder side of both the cystic duct and artery. Both structures were then divided with laparoscopic [place]. Following this the gallbladder was gradually dissected free from the liver. The gallbladder was quite intrahepatic, and required prolonged dissection to free it without injuring the liver. Once the gallbladder was entirely freed, it was placed inside an Endo-Catch bag and removed through the epigastric port site. I did not have to enlarge the epigastric site in order to get the gallbladder out. Once it was out and passed off to the back table I then took another look inside the abdomen. I suctioned clean any remaining blood or fluid on the lateral side of the liver and in the subhepatic space. There was no active bleeding or leaking of bile from the gallbladder fossa or from the clipped stumps of the cystic duct and artery. The epigastric port site was closed with 0 Vicryl suture in the fascia using a Agusto-Britni suture Passer. The insufflation was then removed from the abdomen and 3 O Vicryl was used to close the subcutaneous layers, and 4 Monocryl in the skin. The remaining port sites were closed with 4 Monocryl in the skin. Each port site was sealed with Dermabond. Local anesthetic was given at each of the port sites and in the fascia. This concluded the procedure. At this point the needle sponge and instrument counts were correct. The gallbladder was passed off the table for pathology. Patient was awakened from anesthesia and extubated. She was transferred to the postanesthesia care unit in stable condition. Complications: none Post-operative Condition: stable Disposition: PACU
[2019-12-10] MEDS: fentaNYL 100 MCG/2 ML INJ IV ×2 (16:23→16:30)
[2019-12-10] MEDS: OXYCODONE IR 5 MG TABLET PO (16:49)
--- NOTE | 2019-12-10 17:45 | SUR.PHASEII ---
spoke with on the phone and she is on the way to p/u rx at pharmacy and then to p/u pt. Pt is stable VSS, pain tolerable and eating and drinking without problems. 4 laparoscopic sites to abdomen clear, no drainage.
--- NOTE | 2019-12-10 18:23 | SUR.PHASEII ---
1810-Pt dcd in stable condition, gait steady up and ambulating before dc and getting himself dressed. Dcd to private vehicle at [facility].
== END 2019-12-10 18:15 | disposition home or self-care (01) ==
PROVIDERS: PCP Student in an Organized Health Care Education/Training Program; Referring Provider Surgery; Visit Provider Surgery
PROC: 0FT44ZZ Resection of Gallbladder, Percutaneous Endoscopic Approach (ICD-10-PCS; CPT 47562; principal; 2019-12-10 14:30)
DX: K80.10 Calculus of gallbladder with chronic cholecystitis without obstruction (principal); K82.8 Other specified diseases of gallbladder
CPT/HCPCS: 47563; J0330; J1100; J1885; J2250; J2405; J2543; J2704; J3010

== ENCOUNTER → 2020-08-05 13:46 | Outpatient (CLI) | payer OTHER, SELFPAY ==
[2019-10-19 18:39] VITALS: BMI 26.6
[2020-08-05] MEDS: COVID-19 VACC #1, MRNA(MOD) 100 MCG/0.5 ML VIAL IM (14:10)
== END ==
PROVIDERS: PCP Student in an Organized Health Care Education/Training Program; Visit Provider Internal Medicine
DX: Z23 Encounter for immunization (principal)
CPT/HCPCS: 0011A; 91301

== ENCOUNTER → 2020-09-02 15:56 | Outpatient (CLI) | payer OTHER, SELFPAY ==
[2019-10-19 18:39] VITALS: BMI 26.6
[2020-09-02] MEDS: COVID-19 VACC #2, MRNA(MOD) 100 MCG/0.5 ML VIAL IM (16:06)
== END ==
PROVIDERS: PCP Student in an Organized Health Care Education/Training Program; Visit Provider Internal Medicine
DX: Z23 Encounter for immunization (principal)
CPT/HCPCS: 0012A; 91301

== ENCOUNTER → 2020-12-16 10:16 | Outpatient (CLI) | payer OTHER, SELFPAY ==
[2019-10-19 18:39] VITALS: BMI 26.6
[2020-12-16 11:33] LABS: Add Manual Diff / Slide Review NO; Basophils Absolute Auto 0 /uL (0-100); Basophils Percent Auto 0.2 % (0-2); Eosinophils Absolute Auto 0 /uL (0-450); Eosinophils Percent Auto 0.7 % (2-4); Hematocrit 37.6 % (41-53); Hemoglobin 12.7 g/dL (13.5-17.5); Lymphocytes Absolute Auto 1100 /uL (1100-4500); Lymphocytes Percent Auto 23.8 % (25-40); Mean Corpuscular HGB Conc 33.7 % (30-36); Mean Corpuscular Hemoglobin 29.3 PG (26-34); Mean Corpuscular Volume 86.8 fL (80-100); Monocytes Absolute Auto 300 /uL (0-900); Neutrophils Absolute Auto 3200 /uL (1500-7000); Neutrophils Percent Auto 68.3 % (50-75); Platelet Count 205 X10^3/uL (150-400); Red Blood Cell Count 4.33 X10^6/uL (4.5-5.9); Red Cell Distribution Width 13.6 % (11.6-14.8); White Blood Cell Count 4.7 X10^3/uL (4.5-11.0)
[2020-12-16 12:05] LABS: Alanine Aminotransferase 25 IU/L (<50); Albumin 4.2 g/dL (3.5-5.0); Albumin Globulin Ratio 1.5 (1.0-2.8); Alkaline Phosphatase 77 U/L (38-126); Aspartate Aminotransferase 36 IU/L (17-59); BUN Creatinine Ratio 14.6 (6-22); Bilirubin Total 0.6 mg/dL (0.2-1.3); Blood Urea Nitrogen 12 mg/dL (9-20); C-Reactive Protein Quant < 0.5 mg/dL (<1.0); Calcium 9.2 mg/dL (8.4-10.2); Carbon Dioxide 26 mmol/L (22-32); Chloride 105 mmol/L (98-107); Cholesterol 287 mg/dL (140-199); Estimated Glomerular Filt Rate > 60.0 mL/min (>60); Globulin 2.8 g/dL (1.7-4.1); Glucose 92 mg/dL (80-110); HDL Cholesterol 59 mg/dL (40-60); HEMOLYSIS 17 (0-50); LDL Cholesterol Calculated 197 mg/dL (<100); Potassium 4.2 mmol/L (3.4-5.1); Sodium 135 mmol/L (137-145); Triglycerides 154 mg/dL (35-150); Uric Acid 5.4 mg/dL (3.5-8.5)
== END ==
PROVIDERS: PCP Student in an Organized Health Care Education/Training Program; Referring Provider Naturopath; Visit Provider Naturopath
DX: Z00.00 Encounter for general adult medical examination without abnormal findings (principal); M25.541 Pain in joints of right hand; M25.542 Pain in joints of left hand; M10.9 Gout, unspecified
CPT/HCPCS: 36415; 80053; 80061; 84443; 84550; 85025; 86140

== ENCOUNTER → 2020-12-24 09:33 | Outpatient (CLI) | payer OTHER, SELFPAY ==
[2019-10-19 18:39] VITALS: BMI 26.6
[2020-12-27 10:08] LABS: Fecal Immunochemical Test Negative (Negative)
== END ==
PROVIDERS: PCP Student in an Organized Health Care Education/Training Program; Referring Provider Naturopath; Visit Provider Naturopath
DX: D64.9 Anemia, unspecified (principal)
CPT/HCPCS: 82274

== ENCOUNTER → 2021-01-17 11:07 | Outpatient (CLI) | payer OTHER, SELFPAY ==
[2019-10-19 18:39] VITALS: BMI 26.6
[2021-01-17 12:30] LABS: Hematocrit 38.3 % (41-53); Hemoglobin 12.8 g/dL (13.5-17.5); Mean Corpuscular HGB Conc 33.4 % (30-36); Mean Corpuscular Hemoglobin 29.1 PG (26-34); Mean Corpuscular Volume 87.1 fL (80-100); Platelet Count 214 X10^3/uL (150-400); Red Blood Cell Count 4.39 X10^6/uL (4.5-5.9); Red Cell Distribution Width 13.1 % (11.6-14.8); White Blood Cell Count 4.3 X10^3/uL (4.5-11.0)
== END ==
PROVIDERS: PCP Student in an Organized Health Care Education/Training Program; Referring Provider Naturopath; Visit Provider Naturopath
DX: D64.9 Anemia, unspecified (principal)
CPT/HCPCS: 36415; 85027

== ENCOUNTER → 2021-04-20 10:37 | Outpatient (CLI) | payer OTHER, SELFPAY ==
[2019-10-19 18:39] VITALS: BMI 26.6
[2021-04-21 12:06] LABS: Fecal Immunochemical Test Positive (Negative)
== END ==
PROVIDERS: PCP Student in an Organized Health Care Education/Training Program; Referring Provider Student in an Organized Health Care Education/Training Program; Visit Provider Student in an Organized Health Care Education/Training Program
DX: Z12.11 Encounter for screening for malignant neoplasm of colon (principal)
CPT/HCPCS: 82274

== ENCOUNTER → 2021-06-20 09:24 | Outpatient (CLI) | payer OTHER, SELFPAY ==
[2019-10-19 18:39] VITALS: BMI 26.6
[2021-06-20 10:51] LABS: COVID19 -Nasal RAPID Negative (Negative)
== END ==
PROVIDERS: PCP Student in an Organized Health Care Education/Training Program; Visit Provider Surgery
DX: Z01.812 Encounter for preprocedural laboratory examination (principal); Z20.822 Contact with and (suspected) exposure to COVID-19
CPT/HCPCS: 87635; C9803

== ENCOUNTER 2021-06-21 07:27 | Day surgery (SDC) | payer OTHER, SELFPAY ==
[2019-10-19 18:39] VITALS: BMI 26.6
[2021-06-21] VITALS (10 sets, daily range): BP systolic 100–120; BP diastolic 58–74; PULSE 64–81; RESP 6–66; TEMP 36.3–36.8; O2SAT 10–100; BMI 25.0
--- NOTE | 2021-06-21 | PATH_ITS ---
[facility] Accession Number: [id number] . 01 Material submitted: . colon - DESCENDING COLON POLYP . 02 Diagnosis: Descending Colon Polyp: Multiple (approximately four) portions of tubular adenoma. [facility] 06/23/2021 1653 Local . 02 Electronically signed: . Chelsey Kennedy MD, Pathologist NPI- [id number] . 01 Gross description: . DESCENDING COLON POLYP: Received in formalin are multiple fragment(s) of trujillo, soft tissue measuring 0.7 x 0.5 x 0.1 cm in aggregate submitted entirely in 1 cassette(s) /[facility] 06/22/2021 1329 Local . 02 Pathologist provided ICD-10: K63.5 . 02 CPT . 131677 Specimen Comment: A courtesy copy of this report has been sent to [phone] Performed at: 01 [facility] [address] [facility], [place], [place] [id number] MD Mino Ross MD Phone: [phone] Performed at: 02 [facility] [place] [address] [place], [place] [id number] MD Emiliana Mcarthur MD Phone: [phone]
[2021-06-21] MEDS: LACTATED RINGERS 1,000 ML 200 ML IV (08:07)
--- NOTE | 2021-06-21 08:22 | PM.HP.1 ---
History of Present Illness History of Present Illness Date Patient Seen: 06/21/21 Time Patient Seen: 08:22 Chief complaint: SCREENING COLONOSCOPY Narrative: The patient presents for colorectal sreening. Previously normal colonoscopy 12 years ago. No personal or family history of colon cancer. On further history denies any recent gastrointestinal symptoms. No nausea, vomiting, abdominal pain, loss of appetite, unexplained weight loss, change in bowel habits, diarrhea, constipation, melena, hematochezia, or bright red blood per rectum. Patient History Medical History Aortic stenosis Cardiac arrhythmia Depression GERD (gastroesophageal reflux disease) Herpes (~1996) Hyperlipidemia Sweet's syndrome Surgical History History of aortic valve replacement History of cardiac cath (~2016) S/P cholecystectomy Family & Social History Family History Mother Cancer Grandfather Heart disease Grandmother Cancer Grandmother Cancer Social History: household members spouse Tobacco & Substance use: Tobacco type cigarettes Smoking Status Former smoker alcohol intake current alcohol intake frequency 0-2 drinks per day Substance Use Type does not use Meds Home Medications and Allergies Home Medications Medication Instructions Recorded Confirmed Type aspirin 81 mg tablet,delayed 81 mg PO QDAY #30 tab 02/05/17 06/21/21 Rx release Allergies Allergy/AdvReac Type Severity Reaction Status Date / Time sulfadiazine Allergy Severe Anaphylaxis Verified 04/18/21 14:09 tramadol AdvReac Severe Flushing Verified 04/18/21 14:09 Exam Vital Signs (past 8 hours): - 06/21/21 07:50 Temperature 98.2 F Pulse Rate 81 Respiratory Rate 16 Blood Pressure 120/74 Pulse Oximetry 99 Oxygen Delivery Method Room Air Narrative Exam Narrative: GENERAL: Adult male in no apparent distress HEENT: No scleral icterus CV: Regular rate, no peripheral edema LUNGS: No increased work of breathing. Patient speaks in full sentences without oxygen support. ABDOMEN: Soft, non-tender, non-distended NEURO: Nonfocal, normal strength throughout, SKIN: Warm and dry Assessment & Plan Assessment and plan (1) Screening for colon cancer: Status: Acute Assessment & Plan narrative: The patient requires colorectal screening and colonoscopy is recommended. Technical details were discussed. Risks, benefits, alternatives explained. Risks including but not limited to myocardial infarction, aspiration, bleeding, pain, missed lesion, incomplete examination, need for further radiographic studies, colonic perforation, and need for major abdominal surgery were discussed. All questions were answered to their satisfaction, and they are in agreement with this plan. Time Spent With Patient Critical Care time: I spent a total of [] minutes of critical care time on this patient's care today; this time is exclusive of procedural time.
[2021-06-21] MEDS: MIDAZOLAM 5 MG/5 ML VIAL IV (08:26)
[2021-06-21] MEDS: fentaNYL 250 MCG/5 ML INJ IV (08:27)
--- NOTE | 2021-06-21 08:56 | PM.OP.COLON ---
Operative Date/Time/Diagnoses Date of procedure: 06/21/21 Time of procedure: 08:56 Pre-op diagnosis: Screening colonoscopy Post-op diagnosis: other (Colonic polyp) Procedure & Clinicians Study performed: Colonoscopy Same procedure as scheduled: Yes Indications: Screening Surgeon: Lambert Bradley Procedure Notes Procedure in detail: Medications: Conscious sedation using 11 mg IV midazolam and 250mcg IV of fentanyl The history and physical was performed/updated and the patient is ASA class is 2. The procedure was discussed in detail with the patient. Potential risks complications including infection, bleeding, missed diagnosis, perforation, need for surgery, and were explained. Their questions were answered and informed consent was obtained. Patient was brought to the procedure room and placed standard monitoring equipment. The patient's vital signs were monitored continuously throughout the entire procedure. Prior to starting time-out was performed. The patient was placed in the left lateral recumbent position. Procedural sedation was administered. Examination began with a thorough inspection of the perianal area there was no evidence of fissures, fistulae, external hemorrhoids or cutaneous malignancy. The colonoscopy scope was then placed into the anal canal and was advanced to the cecum, which was identified by the ileocecal valve, the appendiceal orifice and the confluence of the taenia. The scope was then slowly withdrawn examining colon thoroughly in all directions, irrigating it of any residual stool. FINDINGS 1. Descending colon-1 cm colonic polyp removed with cold snare. 50 cm anal verge 2. No masses or inflammation. The patient tolerated the procedure well. They will be discharged once criteria are met. The prep was of good/excellent quality. The withdrawl time was 6 minutes. The sedation time was 22 minutes. Specimen(s): other (descending colon) Complications: none Impression: colonic polyp Post-procedure Recommendations: Colonoscopy in 5 years Disposition: same day surgery
--- NOTE | 2021-06-21 09:15 | SUR.PHASEI ---
Received to PACU after colonoscopy with IV sedation. Report from [facility].
--- NOTE | 2021-06-21 12:47 | SUR.PHASEII ---
Late entry: Left when ready left in stable condition.
== END 2021-06-21 10:30 | disposition home or self-care (01) ==
PROVIDERS: PCP Student in an Organized Health Care Education/Training Program; Referring Provider Surgery; Visit Provider Surgery
PROC: 0DJD8ZZ Inspection of Lower Intestinal Tract, Via Natural or Artificial Opening Endoscopic (ICD-10-PCS; CPT 45378; principal; 2021-06-21 08:30)
DX: Z12.11 Encounter for screening for malignant neoplasm of colon (principal); K21.9 Gastro-esophageal reflux disease without esophagitis; D12.4 Benign neoplasm of descending colon
CPT/HCPCS: 45385; 99152; J2250; J3010

== ENCOUNTER → 2021-08-24 10:45 | Outpatient (CLI) | payer OTHER, SELFPAY ==
[2019-10-19 18:39] VITALS: BMI 26.6
--- NOTE | 2021-08-24 10:48 | DI.RAD.S_ITS ---
PROCEDURE: XR HIP W PEL IF DONE RT 2V INDICATIONS: Dislocation of sacroiliac and sacrococcygeal joint, initial TECHNIQUE: AP pelvis with lateral view(s) of the right hip(s). COMPARISON: None. FINDINGS: Bones: No fractures or dislocations. Pelvic ring appears intact. No suspicious bony lesions. Mild bilateral hip osseous hypertrophy compatible with osteoarthritis. Soft tissues: The visualized bowel gas pattern is normal. No suspicious soft tissue calcifications. IMPRESSION: Mild bilateral hip osteoarthritis. No fracture. No acute osseous lesion. If symptoms and/or clinical suspicion for pathology persists, further assessment with repeat radiographs (7-10 days) or advanced imaging (e.g. CT, MRI or bone scan) should be considered. Dictated by: Radha Fitzpatrick MD, PhD on 08/24/2021 at 13:27 Approved by: Radha Fitzpatrick MD, PhD on 08/24/2021 at 13:28
--- NOTE | 2021-08-24 10:48 | DI.RAD.S_ITS ---
PROCEDURE: XR LUMBAR SPINE 2-3V INDICATIONS: Dislocation of sacroiliac and sacrococcygeal joint, initial TECHNIQUE: 3 views of the lumbar spine were acquired. COMPARISON: RG, XR L-SPINE OUTSIDE FILMS, 06/11/2007, 11:12. FINDINGS: Bones: 5 [id number] vertebrae are present. There is normal bony alignment. No vertebral body compression fractures. No suspicious bony lesions. There is degenerative disc disease, moderate at L3-L4, mild at other levels. Moderate facet arthropathy at L4-L5 and L5-S1. Soft tissues: Overlying bowel gas pattern is normal. Atherosclerotic calcifications are noted. Cholecystectomy clips are present. IMPRESSION: Moderate degenerative disc and facet disease in lumbar spine. Dictated by: Jaleesa Del Valle M.D. on 08/24/2021 at 16:46 Approved by: Jaleesa Del Valle M.D. on 08/24/2021 at 16:48
== END ==
PROVIDERS: PCP Student in an Organized Health Care Education/Training Program; Referring Provider Chiropractor; Visit Provider Chiropractor
DX: S33.2XXA Dislocation of sacroiliac and sacrococcygeal joint, initial encounter (principal); S33.141A Dislocation of L4/L5 lumbar vertebra, initial encounter; M16.0 Bilateral primary osteoarthritis of hip; M47.816 Spondylosis without myelopathy or radiculopathy, lumbar region; M47.817 Spondylosis without myelopathy or radiculopathy, lumbosacral region
CPT/HCPCS: 72100; 73502

== ENCOUNTER → 2022-07-18 15:28 | Outpatient (CLI) | payer OTHER, SELFPAY ==
[2019-10-19 18:39] VITALS: BMI 26.6
[2022-07-20 15:55] LABS: Hep C Virus Ab w/Reflex Quant NEGATIVE s/c (NEGATIVE)
== END ==
PROVIDERS: PCP Student in an Organized Health Care Education/Training Program; Referring Provider Student in an Organized Health Care Education/Training Program; Visit Provider Student in an Organized Health Care Education/Training Program
DX: Z12.5 Encounter for screening for malignant neoplasm of prostate (principal); Z11.59 Encounter for screening for other viral diseases
CPT/HCPCS: 36415; 86803; G0103

== ENCOUNTER → 2022-09-04 11:28 | Outpatient (CLI) | payer OTHER, SELFPAY ==
[2019-10-19 18:39] VITALS: BMI 26.6
--- NOTE | 2022-09-04 11:30 | DI.RAD.S_ITS ---
PROCEDURE: FL BARIUM SWALLOW W SPEECH INDICATIONS: Frequent aspiration COMPARISON: None. TECHNIQUE: Examination was conducted in conjunction with speech pathology per standard protocol. In the lateral projection, filming was performed of the patient swallowing. AP projection filming may also be performed with patient swallowing. COMPARISON: FINDINGS: Function: The oral preparatory phase appears normal, with proper containment. The subsequent oral propulsive phase, pharyngeal phase, and esophageal phase of swallowing also appear normal with all proffered substances. No laryngotracheal penetration or aspiration. No pathologic vallecular pooling. Morphology: No cricopharyngeal bar is identified. No cervical esophageal webs. No Zenker's diverticulum. No strictures. IMPRESSION: Normal study. Please correlate with speech pathology notes for additional findings. Dictated by: Zach Daily M.D. on 09/04/2022 at 13:44 Approved by: Zach Daily M.D. on 09/04/2022 at 13:45
--- NOTE | 2022-09-06 16:41 | ST.SWALLOW ---
Visit Care Team Role Provider Type Sander Gatica MD Attending Provider Physician Primary Care Provider Referring Provider Specialty: Internal Medicine Address: [address] [place] [address], [address], [place], [address] Email: [email or web address] Modified Barium Swallow Study CHICKEN VACCINATOR Clinical Instructor Line Start: 09/05/22 10:04 Freq: Status: Active Protocol: Document 09/04/22 10:05 BE (Rec: 09/05/22 10: BE [id number]) Clinical Instructor Signature Clinical Instructor Clinical Instructor Yes CHICKEN VACCINATOR Modified Barium Swallow Study Start: 09/05/22 10:04 Freq: Status: Active Protocol: Document 09/04/22 10:05 BE (Rec: 09/05/22 10: [id number]) Modified Barium Swallow Study Total Time Visit Start Time 11:00 Visit Stop Time 12:00 Total Visit Minutes 60 Setting Setting Outpatient Care Patient Information Identification Type Name Patient History Per hospitalist, Discussed the differential diagnosis for chronic cough. Advised OTC dextromethorphan to pursue the possibility that he simply as irritated cough receptors that need time to heal. Will also get a barium swallow to take a close look for any microaspiration that may be starting his paroxysms. Patient reported occasional coughing (several times per year) when drinking thin liquids. Pt had open heart surgery in 2017 and reported having a violent reaction to coming out of anesthesia, which he suspected caused the tubes to damage his vocal chords. He stated that he has had frequent unproductive chronic cough since the event. Hx of smoking. Pt stated that swallowing, speaking, or laughing can all trigger coughing fit. No serious choking events reported, but some coughing when swallowing secretions. Subjective Observations Pt was seated in the fluoroscopy chair with instructions and procedure described. Pt agreed to proceed. Patient Positioning Position View Lat-A/P Imaging Lateral View Textures Administered Trials Presented Thin Liquid via Spoon (IDDSI 0 ),Thin Liquid via Cup (IDDSI 0 ),Mildly Thick Liquid via Spoon (IDDSI 2),Mildly Thick Liquid via Cup (IDDSI 2), Extremely Thick Liquid via Spoon (IDDSI 4),Regular (IDDSI 7) Barium Tablet Yes The IDDSI Framework Protocol: IDDSI.1 Oral Impairment Source: The Modified Barium Swallow Impairment Profile (MBSImP??) Lip Closure No labial escape Tongue Control During Bolus Hold Posterior escape of less than half of bolus Bolus Preparation/Mastication Timely & efficient chewing & mashing Bolus Transport/Lingual Motion Brisk tongue motion Oral Residue Trace residue lining oral structures Location Palate Initiation of Pharyngeal Swallow Bolus head in valleculae Additional Oral Impairment Observations OME and DKS were observed to be WNL. Pt's dentition is natural and in good hygiene. ORAL PHASE: Pt demonstrated expected coordination and sequencing of oral structures during oral phase swallow, with the exception of one instance of posterior loss of residue collection following final swallow during thin liquid sequential swallow trial. Posterior loss did not result in aspiration. Pharyngeal Impairment Source: The Modified Barium Swallow Impairment Profile (MBSImP??) Soft Palate Elevation No bolus between soft palate & pharyngeal wall Laryngeal Elevation Part.sup.move.thyroid cart/ part.approx.arytenoids to epiglot.petiole Anterior Hyoid Excursion Complete anterior movement Epiglottic Movement Complete inversion Laryngeal Vestibular Closure Incomplete; narrow column air/ contrast in laryngeal vestibule Pharyngeal Stripping Wave Present - complete Pharyngoesophageal Segment Opening Complete distention & complete duration; no obstruction of flow Tongue Base Retraction No contrast between tongue base & posterior pharyngeal wall Pharyngeal Residue Trace residue within/on pharyngeal structures Location Valleculae Additional Pharyngeal Impairment Pharyngeal phase swallow WNL Observations with few moments of note. Trace amount of contrast in vallecula and pyriform sinuses following swallows, not of concern as not affecting swallow safety. Trace amount of liquid noted between arytenoids and epiglottic petiole during sequential swallows of thin liquid and nectar thick controlled cup sip. No laryngeal penetration observed. No wet vocal quality or coughing observed. A/P View Textures Administered Trials Presented Thin Liquid via Spoon (IDDSI 0 ),Thin Liquid via Cup (IDDSI 0 ),Mildly Thick Liquid via Spoon (IDDSI 2),Mildly Thick Liquid via Cup (IDDSI 2),Puree (IDDSI 4),Regular (IDDSI 7) The IDDSI Framework Protocol: IDDSI.1 A/P View Observations Pharyngeal Contraction Complete Esophageal Clearance Upright Position Complete clearance; esophageal coating Vocal Fold Function Good Esophageal Function WFL Additional A-P Observations [place] thick liquid and barium tablet observed in A/P view, esophageal functioning and pharyngeal contraction WNL. Clinical Impressions Dysphagia Type WNL Findings Swallow functioning WNL. Pt not at risk for aspiration. Recommend no further speech therapy and no diet change. Patient Appropriate for Therapy No Recommendations Diet Liquids Order Thin (IDDSI 0) Diet Order Regular (IDDSI 7) Medication Recommendation As Tolerated Aspiration Precautions Recommended Precautions Upright at 90 Degrees,Small Bites/Sips Treatment Plan Therapy Strategy Recommendations Sitting Upright (90 deg),Small Bites and Sips Short Term Goals 1. Pt will tolerate least restrictive diet that meets his nutritional and hydration needs. Placement Recommendation After Discharge Home Additional Recommendations/Comments Pt requested information on anatomy of throat that could cause his chronic dry cough. Suggested stroboscopy to inform pt of potential damage of structures following extubation in 2017. Pt declined referral.
== END ==
PROVIDERS: PCP Student in an Organized Health Care Education/Training Program; Referring Provider Student in an Organized Health Care Education/Training Program; Visit Provider Student in an Organized Health Care Education/Training Program
DX: R05.9 Cough, unspecified (principal); T17.908A Unspecified foreign body in respiratory tract, part unspecified causing other injury, initial encounter
CPT/HCPCS: 74230; 92611

== ENCOUNTER 2023-07-12 13:57 | Emergency (ER) | payer OTHER, SELFPAY ==
[2019-10-19 18:39] VITALS: BMI 26.6
[2023-07-12] VITALS (14 sets, daily range): BP systolic 87–145; BP diastolic 54–67; PULSE 81–105; RESP 18–20; TEMP 37.3–38.6; O2SAT 92–99; BMI 27.6
--- NOTE | 2023-07-12 14:16 | DI.RAD.S_ITS ---
PROCEDURE: XR CHEST 1V INDICATIONS: suspected sepsis TECHNIQUE: One view of the chest was acquired. COMPARISON: [facility], CR, XR CHEST 1V, 10/19/2019, 15:03. FINDINGS: Surgical changes and devices: Stable median sternotomy wires and aortic valve prosthesis. Lungs and pleura: Lungs are clear. No pleural effusions or pneumothorax. Mediastinum: Mediastinal contours appear normal. Heart size is normal. Bones and chest wall: No suspicious bony lesions. Overlying soft tissues appear unremarkable. IMPRESSION: No acute cardiopulmonary disease process. Dictated by: Radha Fitzpatrick MD, PhD on 07/12/2023 at 15:10 Approved by: Radha Fitzpatrick MD, PhD on 07/12/2023 at 15:11
[2023-07-12] MEDS: SODIUM CHLORIDE 0.9% 1,000 ML 1000 ML IV ×2 (14:32→16:45)
[2023-07-12 14:36] LABS: Add Manual Diff / Slide Review NO; Basophils Absolute Auto 0 /uL (0-100); Basophils Percent Auto 0.4 % (0-2); Eosinophils Absolute Auto 0 /uL (0-450); Eosinophils Percent Auto 0.1 % (2-4); Hematocrit 40.8 % (41-53); Hemoglobin 14.1 g/dL (13.5-17.5); Lymphocytes Absolute Auto 400 /uL (1100-4500); Mean Corpuscular HGB Conc 34.4 % (30-36); Mean Corpuscular Hemoglobin 29.8 PG (26-34); Mean Corpuscular Volume 86.6 fL (80-100); Monocytes Absolute Auto 700 /uL (0-900); Monocytes Percent Auto 9.8 % (3-14); Neutrophils Absolute Auto 6000 /uL (1500-7000); Neutrophils Percent Auto 84.7 % (50-75); Platelet Count 143 X10^3/uL (150-400); Red Blood Cell Count 4.71 X10^6/uL (4.5-5.9); White Blood Cell Count 7.1 X10^3/uL (4.5-11.0)
[2023-07-12 14:50] LABS: Alanine Aminotransferase 116 IU/L (<50); Albumin 4.1 g/dL (3.5-5.0); Albumin Globulin Ratio 1.3 (1.0-2.8); Alkaline Phosphatase 106 U/L (38-126); Aspartate Aminotransferase 98 IU/L (17-59); BUN Creatinine Ratio 13.1 (6-22); Bilirubin Total 1.1 mg/dL (0.2-1.3); Blood Urea Nitrogen 13 mg/dL (9-20); Calcium 8.7 mg/dL (8.4-10.2); Carbon Dioxide 26 mmol/L (22-32); Chloride 100 mmol/L (98-107); Estimated Glomerular Filt Rate > 60 mL/min (>60); Globulin 3.2 g/dL (1.7-4.1); Glucose 96 mg/dL (80-110); HEMOLYSIS < 15 (0-50); Lipase 66 U/L (23-300); Potassium 3.9 mmol/L (3.4-5.1); Sodium 133 mmol/L (137-145); Total Protein 7.3 g/dL (6.3-8.2)
[2023-07-12 14:53] LABS: INR 1.1 (0.9-1.3); Prothrombin Time 12.4 SECONDS (9.4-12.5)
[2023-07-12 14:55] LABS: PTT Partial Thromboplastin Tim 31 SECONDS (25.1-36.5)
[2023-07-12 15:06] LABS: Procalcitonin 0.81 ng/mL (<0.5)
[2023-07-12 15:07] LABS: Influenza A - CEPHEID Flu A NEGATIVE (NEGATIVE); Influenza B - CEPHEID Flu B NEGATIVE (NEGATIVE); Respiratory Syncytial Virus Negative (Negative)
[2023-07-12 15:08] LABS: COVID-19 CEPHEID 4-PLEX PCR Negative (Negative)
[2023-07-12] MEDS: ACETAMINOPHEN 325 MG TABLET 975 MG PO (15:12)
[2023-07-12 15:56] LABS: Ictotest Urine Negative (Negative)
[2023-07-12 16:08] LABS: Bacteria Urine Moderate (10-30); RBC Urine 0-1/HPF (0-5/HPF); Squamous Epithelial Cell Urine 0-1 /HPF (0-5/HPF); Urine Volume 10mL (spun); WBC Urine 1-5/HPF (0-5/HPF)
[2023-07-12 16:09] LABS: Culture Indicated Urine Specimen Cultured
--- NOTE | 2023-07-12 17:54 | DI.CT.S_ITS ---
PROCEDURE: CT CHEST ABD PEL W CON INDICATIONS: SEPSIS TECHNIQUE: After the administration of intravenous contrast, 5 mm thick sections acquired from the lung apices to the symphysis. 5 mm coronal and sagittal reformats were performed, with additional 7 mm MIP reformats through the lungs. For radiation dose reduction, the following was used: automated exposure control, adjustment of mA and/or kV according to patient size. COMPARISON: [facility], CT, CT ABDOMEN PELVIS W CON, 12/03/2019, 0:11. FINDINGS: Image quality: Diagnostic Lungs and pleura: Bibasilar atelectasis/scarring. There may be additional airspace opacities at the bases/costophrenic angles. No dense airspace disease elsewhere. No pleural effusions. Mediastinum, heart, and esophagus: Possible small hiatal hernia and mild nonspecific distal esophageal wall thickening. Aortic valve device. Heart size is at the upper limit of normal. No pathologic lymph nodes by size criteria. Chest wall and thyroid: Thyroid is unremarkable. Chest wall unremarkable. Liver: Unremarkable. Mildly heterogeneous perfusion is nonspecific and may be artifactual, correlate with LFTs. Gallbladder and biliary system: Gallbladder is absent. Biliary ductal dilation in the postsurgical state is seen, correlate for LFTs. Pancreas: No ductal dilation Spleen: Unremarkable Adrenals: No discrete nodules Kidneys: No solid mass or hydronephrosis Vessels and lymph nodes: The main portal vein is patent. There are atherosclerotic calcifications. No pathologic lymph nodes by size criteria. Bowel and peritoneum: No evidence of small bowel obstruction. No pathologic ascites or drainable abscess. Colonic diverticula are present. The appendix is nondilated. Body wall: Small fat containing right inguinal and small periumbilical hernia. Pelvis: Bladder is unremarkable. The prostate is heterogeneous not well evaluated on CT. Bones: No acute or suspicious osseous findings. There are sternotomy wires. IMPRESSION: Possible infectious/inflammatory mild bibasilar opacities, along with atelectasis/scarring. Consider future imaging surveillance to assess for resolution. No pleural effusions. Mildly heterogeneous liver, nonspecific CT appearance (possibly due to perfusion artifact). Mild biliary ductal dilation, post cholecystectomy, correlate with LFTs to determine significance. Other findings above. Dictated by: Escobar Anderson M.D. on 07/12/2023 at 18:51 Approved by: Escobar Anderson M.D. on 07/12/2023 at 18:58
--- NOTE | 2023-07-12 18:16 | ED_ITS ---
HPI - General Adult General Chief complaint: Abdominal Pain Stated complaint: hx of sepsis, flu like symptoms t-4 Time Seen by Provider: 07/12/23 17:54 Source: patient Mode of arrival: Ambulatory History of Present Illness HPI narrative: 62-year-old male presents by private vehicle from home for 4 days of malaise, fever, nonproductive cough. Also reporting general abdominal pain. Patient states that pain started across his lower abdomen and has now spread upwards to his upper abdomen, encompassing his entire stomach. Patient states he feels constipated, but does state that he is eaten very little over the last several days due to his symptoms. Has been taking Tylenol and Motrin for symptoms without significant relief. Related Data Previous Rx's Medication Instructions Recorded aspirin 81 mg tablet,delayed 81 mg PO QDAY #30 tabs 02/05/17 release levofloxacin 750 mg tablet 750 mg PO Q24H 5 days #5 tabs 07/12/23 Allergies Allergy/AdvReac Type Severity Reaction Status Date / Time sulfadiazine Allergy Severe Anaphylaxis Verified 07/09/23 13:28 tramadol AdvReac Severe Flushing Verified 07/09/23 13:28 Review of Systems Review of Systems Narrative: Negative except as noted above Patient History Medical History GERD (gastroesophageal reflux disease) Depression Sweet's syndrome Herpes (~1996) Hyperlipidemia Cardiac arrhythmia Aortic stenosis Surgical History S/P cholecystectomy History of cardiac cath (~2016) History of aortic valve replacement Family History Mother Cancer Grandfather Heart disease Grandmother Cancer Grandmother Cancer Social History marital status: household members: spouse occupational status: employed Smoking Status: Former smoker alcohol intake: current substance use type: does not use Smoking Status: Former smoker alcohol intake frequency: 0-2 drinks per day Alcohol type: wine Substance Use Type: does not use Exam Initial Vital Signs Initial Vital Signs: Vital Signs Temperature 101.5 F H 07/12/23 14:02 Pulse Rate 105 H 07/12/23 14:02 Respiratory Rate 20 07/12/23 14:02 Blood Pressure 145/67 H 07/12/23 14:02 Pulse Oximetry 99 07/12/23 14:02 Oxygen Delivery Method Room Air 07/12/23 14:02 Const: Awake, alert, no acute distress, nontoxic appearing Cardiac: regular rate, regular rhythm RESP: unlabored, clear bilaterally, no wheezing GI: Atraumatic, soft, nontender, nondistended, no rebound, no guarding MSK: Atraumatic, full range of motion, pulses equal Skin: Warm, Dry, intact, no rashes Neuro: AO x3, CN II-XII grossly intact, moves all extremities Course Orders Ordered: Discontinued Medications Acetaminophen (Acetaminophen 325 Mg Tablet) 975 mg PO NOW ONE Stop: 07/12/23 15:09 Last Admin: 07/12/23 15:12 Dose: 975 mg Documented By: RB Sodium Chloride (Normal Saline 0.9%) 1,000 mls @ 1,000 mls/hr IV BOLUS ONE Stop: 07/12/23 15:15 Last Infusion: 07/12/23 15:07 Dose: Infused Documented By: Admin: 07/12/23 14:32 Dose: 1,000 mls/hr Documented By: MAG Sodium Chloride (Normal Saline 0.9%) 1,000 mls @ 1,000 mls/hr IV BOLUS ONE Stop: 07/12/23 17:42 Last Infusion: 07/12/23 17:48 Dose: Infused Documented By: Admin: 07/12/23 16:45 Dose: 1,000 mls/hr Documented By: TANESHA Ondansetron HCl (Ondansetron 4 Mg/2 Ml Inj) 4 mg IV NOW PRN PRN Reason: Nausea And Vomiting Ondansetron HCl (Ondansetron 4 Mg Odt) 4 mg PO NOW PRN PRN Reason: Nausea And Vomiting Vital Signs Vital signs: Vital Signs - 8 hr 07/12/23 14:02 07/12/23 16:25 07/12/23 16:30 Temperature 101.5 F H Pulse Rate 105 H 91 H 90 Respiratory Rate 20 Blood Pressure 145/67 H Pulse Oximetry 99 92 96 Oxygen Delivery Method Room Air 07/12/23 16:38 07/12/23 16:38 07/12/23 16:39 Temperature Pulse Rate 89 Respiratory Rate Blood Pressure 98/57 L 98/54 L Pulse Oximetry 94 Oxygen Delivery Method 07/12/23 16:39 07/12/23 17:00 07/12/23 17:00 Temperature Pulse Rate 89 85 Respiratory Rate Blood Pressure 95/59 L Pulse Oximetry 95 95 Oxygen Delivery Method 07/12/23 17:30 07/12/23 17:30 07/12/23 17:34 Temperature 99.1 F Pulse Rate 82 Respiratory Rate Blood Pressure 87/54 L 98/55 L Pulse Oximetry 97 Oxygen Delivery Method 07/12/23 17:34 07/12/23 18:00 07/12/23 18:00 Temperature Pulse Rate 81 81 Respiratory Rate Blood Pressure 97/54 L Pulse Oximetry 98 96 Oxygen Delivery Method 07/12/23 18:21 07/12/23 18:21 07/12/23 18:30 Temperature Pulse Rate 83 Respiratory Rate Blood Pressure 106/61 102/58 L Pulse Oximetry 97 Oxygen Delivery Method 07/12/23 18:30 07/12/23 19:00 07/12/23 19:05 Temperature Pulse Rate 81 82 Respiratory Rate Blood Pressure 95/58 L Pulse Oximetry 97 96 Oxygen Delivery Method 07/12/23 19:05 07/12/23 19:30 07/12/23 19:30 Temperature Pulse Rate 82 81 Respiratory Rate 18 Blood Pressure 103/59 L Pulse Oximetry 96 98 Oxygen Delivery Method Medical Decision Making Differential Diagnosis Differential Diagnosis: Viral syndrome, pneumonia, UTI Lab Data 07/12/23 14:23 07/12/23 14:23 Labs: Lab Results 07/12/23 07/12/23 07/12/23 Range/Units 14:10 14:23 18:55 WBC 7.1 (4.5-11.0) X10^3/uL RBC 4.71 (4.5-5.9) X10^6/uL Hgb 14.1 (13.5-17.5) g/dL Hct 40.8 L (41-53) % MCV 86.6 (80-100) fL MCH 29.8 (26-34) PG MCHC 34.4 (30-36) % RDW 14.0 (11.6-14.8) % Plt Count 143 L (150-400) X10^3/uL Neut % (Auto) 84.7 H (50-75) % Lymph % (Auto) 5.0 L (25-40) % Leslie % (Auto) 9.8 (3-14) % Eos % (Auto) 0.1 L (2-4) % Baso % (Auto) 0.4 (0-2) % Neut # (Auto) 6000 (8419-8526) /uL Lymph # (Auto) 400 L (8120-3537) /uL Leslie # (Auto) 700 (0-900) /uL Eos # (Auto) 0 (0-450) /uL Baso # (Auto) 0 (0-100) /uL PT 12.4 (9.4-12.5) SECONDS INR 1.1 (0.9-1.3) APTT 31 (25.1-36.5) SECONDS Sodium 133 L (137-145) mmol/L Potassium 3.9 (3.4-5.1) mmol/L Chloride 100 (98-107) mmol/L Carbon Dioxide 26 (22-32) mmol/L BUN 13 (9-20) mg/dL Creatinine 0.99 (0.66-1.25) mg/dL Estimated GFR > 60 (>60) mL/min BUN/Creatinine Ratio 13.1 (6-22) Glucose 96 (80-110) mg/dL Lactate 1.0 (0.7-2.1) mmol/L Calcium 8.7 (8.4-10.2) mg/dL Total Bilirubin 1.1 (0.2-1.3) mg/dL AST 98 H (17-59) IU/L ALT 116 H (<50) IU/L Alkaline Phosphatase 106 (38-126) U/L Total Protein 7.3 (6.3-8.2) g/dL Albumin 4.1 (3.5-5.0) g/dL Globulin 3.2 (1.7-4.1) g/dL Albumin/Globulin Ratio 1.3 (1.0-2.8) Lipase 66 (23-300) U/L Procalcitonin 0.81 H (<0.5) ng/mL Ur Bilirubin Confirm Negative (Negative) Urine RBC 0-1/hpf (0-5/HPF) Urine WBC 1-5/hpf (0-5/HPF) Ur Squamous Epith Cells 0-1 /hpf (0-5/HPF) Urine Bacteria Moderate (10-30) H (None) Ur Culture Indicated? Specimen cultured Vol Urine Centrifuged 10ml (spun) Chlamy pneumoniae PCR Not detected (Not Detect) Adenovirus (PCR) Not detected (Not Detect) B.parapertussis DNA PCR Not detected (Not Detecte) Coronavirus OC43 (PCR) Not detected (Not Detect) Coronavirus HKU1 (PCR) Not detected (Not Detect) Coronavirus 229E (PCR) Not detected (Not Detect) SARS-CoV-2 (PCR) Negative Not detected (Negative) Coronavirus NL63 (PCR) Not detected (Not Detect) Human Metapneumovir PCR Not detected (Not Detect) Influenza A (RT-PCR) Flu a negative (NEGATIVE) Influenza Type A (PCR) Not detected (Not Detect) Influenza B (RT-PCR) Flu b negative (NEGATIVE) Influenza Type B (PCR) Not detected (Not Detect) M. pneumoniae (PCR) Not detected (Not Detect) Parainfluenza 1 (PCR) Not detected (Not Detect) Parainfluenza 2 (PCR) Not detected (Not Detect) Parainfluenza 3 (PCR) Not detected (Not Detect) Parainfluenza 4 (PCR) Not detected (Not Detect) RSV (PCR) Negative Not detected (Negative) Entero/Rhino (PCR) Not detected (Not Detect) Urine Dip Bedside Urine Glucose Negative Bedside Urine Bilirubin + 1 Bedside Urine Ketone +++ 80 Urine Specific [place] 1.010 Bedside Urine Occult Blood - Negative Bedside Urine pH 7.5 Bedside Urine Protein + 30 Bedside Urine Urobilinogen +/- 1mg Bedside Urine Nitrite - Negative Bedside Urine Leukocytes +/- 15 Esterase Point of care testing: Urine Dip Bedside Urine Glucose Negative Bedside Urine Bilirubin + 1 Bedside Urine Ketone +++ 80 Urine Specific [place] 1.010 Bedside Urine Occult Blood - Negative Bedside Urine pH 7.5 Bedside Urine Protein + 30 Bedside Urine Urobilinogen +/- 1mg Bedside Urine Nitrite - Negative Bedside Urine Leukocytes +/- [address] scan - abdomen/pelvis: Radiologist's Impression: PROCEDURE: CT CHEST ABD PEL W CON INDICATIONS: SEPSIS TECHNIQUE: After the administration of intravenous contrast, 5 mm thick sections acquired from the lung apices to the symphysis. 5 mm coronal and sagittal reformats were performed, with additional 7 mm MIP reformats through the lungs. For radiation dose reduction, the following was used: automated exposure control, adjustment of mA and/or kV according to patient size. COMPARISON: [facility], CT, CT ABDOMEN PELVIS W CON, 12/03/2019, 0:11. FINDINGS: Image quality: Diagnostic Lungs and pleura: Bibasilar atelectasis/scarring. There may be additional airspace opacities at the bases/costophrenic angles. No dense airspace disease elsewhere. No pleural effusions. Mediastinum, heart, and esophagus: Possible small hiatal hernia and mild nonspecific distal esophageal wall thickening. Aortic valve device. Heart size is at the upper limit of normal. No pathologic lymph nodes by size criteria. Chest wall and thyroid: Thyroid is unremarkable. Chest wall unremarkable. Liver: Unremarkable. Mildly heterogeneous perfusion is nonspecific and may be artifactual, correlate with LFTs. Gallbladder and biliary system: Gallbladder is absent. Biliary ductal dilation in the postsurgical state is seen, correlate for LFTs. Pancreas: No ductal dilation Spleen: Unremarkable Adrenals: No discrete nodules Kidneys: No solid mass or hydronephrosis Vessels and lymph nodes: The main portal vein is patent. There are atherosclerotic calcifications. No pathologic lymph nodes by size criteria. Bowel and peritoneum: No evidence of small bowel obstruction. No pathologic ascites or drainable abscess. Colonic diverticula are present. The appendix is nondilated. Body wall: Small fat containing right inguinal and small periumbilical hernia. Pelvis: Bladder is unremarkable. The prostate is heterogeneous not well evaluated on CT. Bones: No acute or suspicious osseous findings. There are sternotomy wires. IMPRESSION: Possible infectious/inflammatory mild bibasilar opacities, along with atelectasis/scarring. Consider future imaging surveillance to assess for resolution. No pleural effusions. Mildly heterogeneous liver, nonspecific CT appearance (possibly due to perfusion artifact). Mild biliary ductal dilation, post cholecystectomy, correlate with LFTs to determine significance. Other findings above. Dictated by: Escobar Anderson M.D. on 07/12/2023 at 18:51 Approved by: Escobar Anderson M.D. on 07/12/2023 at 18:58 MDM Narrative Medical decision making narrative: Ill-appearing but nontoxic patient presenting for numerous generalized symptoms. He was reporting all over abdominal pain and constipation, abdomen is soft without reproducible tenderness. Did have fever on arrival and blood cultures were drawn with and Tylenol administered. Laboratory work is reviewed. No leukocytosis but there is neutrophil predominance. Sodium 133, AST 98, ALT 116. Respiratory panel negative. Procalcitonin 0.81. CT of the chest, abdomen, and pelvis reviewed, patient has possible infectious opacities in the bilateral bases. Heterogenous liver with mild biliary ductal dilation seen. Patient does have mild elevation in his liver enzymes of uncertain chronicity, last values in our system were from 2020. There is no focal tenderness in this region and likely incidental. No evidence of constipation despite reporting that he was not had a bowel movement in several days. Moderate bacteria noted in the urine. Patient reassessed, feeling improved after receiving fluids in antipyretics. Lab and imaging findings counseled with patient and his significant other at bedside. There was not appear to be an obvious source of patient's symptoms, however with elevated procalcitonin, neutrophil predominance, and bacteria in the urine and CT opacities present in the bases will treat empirically with antibiotics. With both possible urinary and pulmonary sources levaquin chosen for abx due to cross coverage of both types of pathogens. Strict ED return precautions discussed at bedside. Discharge Plan Departure Patient Disposition: Home Clinical Impression: Abdominal pain, Malaise, Bacteriuria, Pneumonia Instructions: DI for Pneumonia -- Adult, DI for Urinary Tract Infection (UTI) Activity Restrictions/Additional Instructions: Your CT scan today showed findings that may be related to pneumonia in the bilateral bases of your lungs. You also had bacteria in your urine. An antibiotic has been sent to the pharmacy that should cover both of these conditions. Continue to take Tylenol and Motrin as needed for fever or discomfort. Drink plenty of fluids. If he continued to feel constipated increase MiraLax until you achieve 1 soft bowel movement per day Prescriptions: New levofloxacin 750 mg tablet 750 mg PO Q24H 5 Days Qty: 5 0RF No Action aspirin 81 MG tablet,delayed release (DR/EC) 81 mg PO QDAY Qty: 30 0RF Referrals: Joaquin Asencio DO [Primary Care Provider] - Stand Alone Forms: Patient Portal/API
[2023-07-12 19:56] LABS: Adenovirus Not Detected (Not Detect); B. parapertussis Not Detected (Not Detecte); Bordetella pertussis Not Detected (Not Detect); Chlamydophila pneumoniae Not Detected (Not Detect); Coronavirus 229E Not Detected (Not Detect); Coronavirus HKU1 Not Detected (Not Detect); Coronavirus NL 63 Not Detected (Not Detect); Coronavirus OC43 Not Detected (Not Detect); Human Metapneumovirus Not Detected (Not Detect); Human Rhinovirus/Enterovirus Not Detected (Not Detect); Influenza A Not Detected (Not Detect); Influenza B Not Detected (Not Detect); Mycoplasma pneumoniae Not Detected (Not Detect); Parainfluenza Virus 1 Not Detected (Not Detect); Parainfluenza Virus 2 Not Detected (Not Detect); Parainfluenza Virus 3 Not Detected (Not Detect); Parainfluenza Virus 4 Not Detected (Not Detect); Respiratory Syncytial Virus Not Detected (Not Detect); SARS- CoV-2 Not Detected (Not Detecte)
== END 2023-07-12 20:36 | disposition home or self-care (01) ==
PROVIDERS: Emergency Medicine; Emergency Provider Emergency Medicine; PCP Family Medicine
DX: J18.9 Pneumonia, unspecified organism (principal); R10.84 Generalized abdominal pain; R82.71 Bacteriuria; R53.81 Other malaise; Z20.822 Contact with and (suspected) exposure to COVID-19
CPT/HCPCS: 0241U; 71045; 71260; 74177; 80053; 81003; 81015; 83605; 83690; 84145; 85025; 85610; 85730; 87040; 87077; 87086; 87186; 87633; 93005; 93010; 96360; 96361; 99284; Q9967

== ENCOUNTER → 2023-07-24 10:42 | Outpatient (CLI) | payer OTHER, SELFPAY ==
[2019-10-19 18:39] VITALS: BMI 26.6
== END ==
PROVIDERS: PCP Family Medicine; Referring Provider Family Medicine; Visit Provider Family Medicine
DX: J18.9 Pneumonia, unspecified organism (principal); R78.81 Bacteremia; Z95.2 Presence of prosthetic heart valve
CPT/HCPCS: 87040; 87186

== ENCOUNTER → 2023-08-08 10:39 | Outpatient (CLI) | payer OTHER, SELFPAY ==
[2019-10-19 18:39] VITALS: BMI 26.6
--- NOTE | 2023-08-08 10:40 | DI.RAD.S_ITS ---
PROCEDURE: XR SHOULDER LT MIN 2V INDICATIONS: pain, decreased ROM TECHNIQUE: 3 views of the shoulder were acquired. COMPARISON: None. FINDINGS: Bones: No fractures or dislocations. No suspicious bony lesions. Visualized ribs appear intact. Line sternal wires Soft tissues: No suspicious soft tissue calcifications. IMPRESSION: No acute bony abnormality. Approved by: Juan Higginbotham M.D. on 08/08/2023 at 19:33
== END ==
PROVIDERS: PCP Family Medicine; Referring Provider Family Medicine; Visit Provider Family Medicine
DX: M25.512 Pain in left shoulder (principal)
CPT/HCPCS: 73030

== ENCOUNTER → 2023-08-30 17:21 | Outpatient (ROUT) | payer OTHER, SELFPAY ==
[2019-10-19 18:39] VITALS: BMI 26.6
[2023-08-30 17:31] LABS: Add Manual Diff / Slide Review NO; Basophils Absolute Auto 0 /uL (0-100); Basophils Percent Auto 0.3 % (0-2); Eosinophils Absolute Auto 0 /uL (0-450); Eosinophils Percent Auto 0.8 % (2-4); Hematocrit 41.5 % (41-53); Hemoglobin 14.2 g/dL (13.5-17.5); Lymphocytes Absolute Auto 1300 /uL (1100-4500); Lymphocytes Percent Auto 22.2 % (25-40); Mean Corpuscular HGB Conc 34.2 % (30-36); Mean Corpuscular Hemoglobin 29.4 PG (26-34); Mean Corpuscular Volume 85.9 fL (80-100); Monocytes Absolute Auto 600 /uL (0-900); Monocytes Percent Auto 9.6 % (3-14); Neutrophils Absolute Auto 3900 /uL (1500-7000); Neutrophils Percent Auto 67.1 % (50-75); Platelet Count 190 X10^3/uL (150-400); Red Blood Cell Count 4.83 X10^6/uL (4.5-5.9); Red Cell Distribution Width 13.7 % (11.6-14.8); White Blood Cell Count 5.8 X10^3/uL (4.5-11.0)
[2023-08-30 17:51] LABS: Alanine Aminotransferase 25 IU/L (<50); Alkaline Phosphatase 69 U/L (38-126); Aspartate Aminotransferase 30 IU/L (17-59); Blood Urea Nitrogen 19 mg/dL (9-20); C-Reactive Protein Quant < 0.5 mg/dL (<1.0)
[2023-08-30 18:54] LABS: Erythrocyte Sedimentation Rate 7 MM/HR (0-15)
== END ==
PROVIDERS: PCP Family Medicine; Visit Provider Internal Medicine
DX: R78.81 Bacteremia (principal)
CPT/HCPCS: 84075; 84450; 84460; 84520; 85025; 85651; 86140

== ENCOUNTER → 2023-09-06 18:00 | Outpatient (ROUT) | payer OTHER, SELFPAY ==
[2019-10-19 18:39] VITALS: BMI 26.6
[2023-09-06 18:12] LABS: Add Manual Diff / Slide Review NO; Basophils Absolute Auto 0 /uL (0-100); Basophils Percent Auto 0.7 % (0-2); Eosinophils Absolute Auto 0 /uL (0-450); Eosinophils Percent Auto 0.9 % (2-4); Hematocrit 42.7 % (41-53); Hemoglobin 14.3 g/dL (13.5-17.5); Lymphocytes Absolute Auto 1100 /uL (1100-4500); Lymphocytes Percent Auto 23.6 % (25-40); Mean Corpuscular HGB Conc 33.5 % (30-36); Mean Corpuscular Hemoglobin 28.8 PG (26-34); Monocytes Absolute Auto 500 /uL (0-900); Monocytes Percent Auto 10.6 % (3-14); Neutrophils Absolute Auto 3000 /uL (1500-7000); Neutrophils Percent Auto 64.2 % (50-75); Platelet Count 215 X10^3/uL (150-400); Red Blood Cell Count 4.97 X10^6/uL (4.5-5.9); Red Cell Distribution Width 13.7 % (11.6-14.8); White Blood Cell Count 4.7 X10^3/uL (4.5-11.0)
[2023-09-06 18:24] LABS: Alanine Aminotransferase 25 IU/L (<50); Alkaline Phosphatase 66 U/L (38-126); Aspartate Aminotransferase 34 IU/L (17-59); Blood Urea Nitrogen 16 mg/dL (9-20); C-Reactive Protein Quant < 0.5 mg/dL (<1.0)
[2023-09-06 18:32] LABS: Erythrocyte Sedimentation Rate 7 MM/HR (0-15)
== END ==
PROVIDERS: PCP Family Medicine; Visit Provider Internal Medicine
DX: R78.81 Bacteremia (principal)
CPT/HCPCS: 84075; 84450; 84460; 84520; 85025; 85651; 86140

== ENCOUNTER → 2023-12-15 09:01 | Outpatient (CLI) | payer MEDICARE, SELFPAY ==
[2019-10-19 18:39] VITALS: BMI 26.6
[2023-12-15 09:38] LABS: Add Manual Diff / Slide Review NO; Basophils Absolute Auto 0 /uL (0-100); Basophils Percent Auto 0.3 % (0-2); Eosinophils Absolute Auto 100 /uL (0-450); Eosinophils Percent Auto 1.1 % (2-4); Hematocrit 38.2 % (41-53); Lymphocytes Absolute Auto 1400 /uL (1100-4500); Lymphocytes Percent Auto 28.9 % (25-40); Mean Corpuscular HGB Conc 34.2 % (30-36); Mean Corpuscular Hemoglobin 29.5 PG (26-34); Mean Corpuscular Volume 86.2 fL (80-100); Monocytes Absolute Auto 500 /uL (0-900); Monocytes Percent Auto 10.2 % (3-14); Neutrophils Absolute Auto 2800 /uL (1500-7000); Neutrophils Percent Auto 59.5 % (50-75); Platelet Count 200 X10^3/uL (150-400); Red Blood Cell Count 4.43 X10^6/uL (4.5-5.9); Red Cell Distribution Width 13.8 % (11.6-14.8); White Blood Cell Count 4.7 X10^3/uL (4.5-11.0)
[2023-12-15 10:20] LABS: Alanine Aminotransferase 18 IU/L (<50); Albumin 3.9 g/dL (3.5-5.0); Albumin Globulin Ratio 1.6 (1.0-2.8); Alkaline Phosphatase 61 U/L (38-126); Aspartate Aminotransferase 24 IU/L (17-59); BUN Creatinine Ratio 15.6 (6-22); Bilirubin Total 0.7 mg/dL (0.2-1.3); Blood Urea Nitrogen 15 mg/dL (9-20); Carbon Dioxide 26 mmol/L (22-32); Chloride 107 mmol/L (98-107); Cholesterol 274 mg/dL (140-199); Estimated Glomerular Filt Rate > 60 mL/min (>60); Globulin 2.5 g/dL (1.7-4.1); Glucose 95 mg/dL (80-110); HDL Cholesterol 56 mg/dL (40-60); HEMOLYSIS < 15 (0-50); LDL Cholesterol Calculated 174 mg/dL (<100); Potassium 4.1 mmol/L (3.4-5.1); Sodium 137 mmol/L (137-145); Total Protein 6.4 g/dL (6.3-8.2); Triglycerides 222 mg/dL (35-150)
[2023-12-15 10:48] LABS: Prostate Specific Antigen Scrn 0.426 ng/mL (0.1-4.0)
[2023-12-15 10:51] LABS: Testosterone 475 ng/dL (71.8-623)
== END ==
PROVIDERS: PCP Family Medicine; Referring Provider Family Medicine; Visit Provider Family Medicine
DX: Z00.00 Encounter for general adult medical examination without abnormal findings (principal); E78.5 Hyperlipidemia, unspecified; Z12.5 Encounter for screening for malignant neoplasm of prostate; Z79.890 Hormone replacement therapy; R68.82 Decreased libido; D64.9 Anemia, unspecified
CPT/HCPCS: 36415; 80053; 80061; 84403; 85025; G0103

== ENCOUNTER → 2024-09-08 10:26 | Outpatient (CLI) | payer MEDICARE, OTHER, SELFPAY ==
[2019-10-19 18:39] VITALS: BMI 26.6
[2024-09-08 10:58] LABS: Add Manual Diff / Slide Review NO; Basophils Absolute Auto 0 /uL (0-100); Basophils Percent Auto 0.3 % (0-2); Eosinophils Absolute Auto 100 /uL (0-450); Eosinophils Percent Auto 0.9 % (2-4); Hematocrit 39.5 % (41-53); Hemoglobin 13.4 g/dL (13.5-17.5); Lymphocytes Absolute Auto 1600 /uL (1100-4500); Lymphocytes Percent Auto 25.2 % (25-40); Mean Corpuscular HGB Conc 33.9 % (30-36); Mean Corpuscular Hemoglobin 29.2 PG (26-34); Mean Corpuscular Volume 86.2 fL (80-100); Monocytes Absolute Auto 500 /uL (0-900); Monocytes Percent Auto 8.3 % (3-14); Neutrophils Absolute Auto 4100 /uL (1500-7000); Neutrophils Percent Auto 65.3 % (50-75); Platelet Count 218 X10^3/uL (150-400); Red Blood Cell Count 4.59 X10^6/uL (4.5-5.9); Red Cell Distribution Width 13.2 % (11.6-14.8); White Blood Cell Count 6.3 X10^3/uL (4.5-11.0)
[2024-09-08 11:01] LABS: Appearance Urine UA CLEAR; Bilirubin Urine UA NEGATIVE (NEGATIVE); Color Urine UA YELLOW; Glucose Urine UA NEGATIVE (Negative); Ketones Urine UA NEGATIVE (NEGATIVE); Leukocyte Esterase Urine UA NEGATIVE (NEGATIVE); Nitrite Urine UA NEGATIVE (Negative); Occult Blood Urine UA NEGATIVE (Negative); Protein Urine UA NEGATIVE (Negative); Urobilinogen Urine UA 0.2 E.U./dL (0.2)
[2024-09-08 11:06] LABS: Urine Volume 10mL (spun)
[2024-09-08 11:07] LABS: Bacteria Urine None Seen; Culture Indicated Urine Cult Not Indicated; RBC Urine None Seen (0-5/HPF); Squamous Epithelial Cell Urine None Seen (0-5/HPF); WBC Urine None Seen (0-5/HPF)
[2024-09-08 11:19] LABS: Alanine Aminotransferase 24 IU/L (<50); Albumin 4.6 g/dL (3.5-5.0); Albumin Globulin Ratio 1.9 (1.0-2.8); Alkaline Phosphatase 75 U/L (38-126); Aspartate Aminotransferase 33 IU/L (17-59); BUN Creatinine Ratio 15.7 (6-22); Bilirubin Total 0.7 mg/dL (0.2-1.3); Blood Urea Nitrogen 16 mg/dL (9-20); Calcium 9.3 mg/dL (8.4-10.2); Carbon Dioxide 28 mmol/L (22-32); Chloride 102 mmol/L (98-107); Estimated Glomerular Filt Rate > 60 mL/min (>60); Globulin 2.4 g/dL (1.7-4.1); Glucose 98 mg/dL (70-99); HEMOLYSIS < 15 (0-50); Potassium 4.4 mmol/L (3.4-5.1); Sodium 137 mmol/L (137-145)
== END ==
PROVIDERS: PCP Family Medicine; Referring Provider Family Medicine; Visit Provider Family Medicine
DX: R10.32 Left lower quadrant pain (principal); M25.532 Pain in left wrist; R14.0 Abdominal distension (gaseous)
CPT/HCPCS: 36415; 80053; 81001; 85025

== ENCOUNTER → 2024-09-11 06:51 | Outpatient (CLI) | payer MEDICARE, OTHER, SELFPAY ==
[2019-10-19 18:39] VITALS: BMI 26.6
--- NOTE | 2024-09-11 06:53 | DI.CT.S_ITS ---
PROCEDURE: CT ABDOMEN PELVIS W CON INDICATIONS: LLQ pain TECHNIQUE: After the administration of intravenous contrast, axial sections acquired from the lung bases to the pubic symphysis. Coronal and sagittal reformats were performed. For radiation dose reduction, the following was used: automated exposure control, adjustment of mA and/or kV according to patient size. COMPARISON: [facility], CT, CT ABDOMEN PELVIS W CON, 12/03/2019, 0:11. [facility], CT, CT ABDOMEN PELVIS W CON, 10/19/2019, 15:46. FINDINGS: Image quality: Diagnostic. Lower Chest: No significant findings. Very small hiatal hernia behind the heart. ABDOMEN: Liver: No solid mass. Gallbladder: Interval cholecystectomy. Biliary ducts: No biliary dilation. Pancreas: No ductal dilation. Spleen: Size is within normal limits. Adrenal Glands: No adrenal nodules. Kidneys and Ureters: No hydronephrosis. No solid mass. No complex renal cystic lesion which requires follow up. Stomach and Bowel: Normal colonic caliber, without significant wall thickening. Peritoneum: No abnormal intraperitoneal fluid. No free air. Ventral Wall: No significant ventral hernia. Abdominal Nodes: No retroperitoneal or mesenteric adenopathy by size criteria. Vessels: Aorta and inferior vena cava are normal in size. PELVIS: Pelvic Organs: Unremarkable. Bladder: No bladder wall thickening, accounting for underdistention. Pelvic Nodes: No enlarged lymph nodes. Miscellaneous: No inguinal hernias are seen. Normal appendix found right lower quadrant. Bones: No aggressive osseous abnormality. IMPRESSION: 1. A definite source of left lower quadrant pain is not found. Mild sigmoid diverticulosis without evidence of acute diverticulitis. Normal appendix found right lower quadrant. 2. Interval cholecystectomy. Resolution of mild common bile duct dilatation. 3. Very small hiatal hernia behind the heart incidentally noted. Dictated by: Dane Maria M.D. on 09/11/2024 at 11:21 Approved by: Dane Maria M.D. on 09/11/2024 at 11:27
== END ==
LOC: CT 06:52
PROVIDERS: PCP Family Medicine; Referring Provider Family Medicine; Visit Provider Family Medicine
DX: K57.30 Diverticulosis of large intestine without perforation or abscess without bleeding (principal); K44.9 Diaphragmatic hernia without obstruction or gangrene; R10.32 Left lower quadrant pain; R14.0 Abdominal distension (gaseous); M25.532 Pain in left wrist; Z90.49 Acquired absence of other specified parts of digestive tract
CPT/HCPCS: 74177; Q9967